=== PATIENT | male | born 1945 | race Caucasian/White ===

== ENCOUNTER 2016-09-27 07:25 | Day surgery (SDC) | payer MEDICARE, BC ==
[2016-09-27] MEDS ORDERED: Sodium Chloride 0.9% 1,000 ML IV SCH (08:00)
[2016-09-27] MEDS ORDERED: fentaNYL 100 MCG/2 ML SDV ONE (08:15)
[2016-09-27] MEDS ORDERED: Propofol 200 MG/20 ML SDV ONE (08:15)
[2016-09-27 09:36] VITALS: BP 113/67
--- NOTE | 2016-09-28 12:39 | PROC ---
DATE OF PROCEDURE: 09/27/2016 INDICATION: Luis is a 71-year-old male who has had increasing abdominal pain to the point that he is concerned as it was not getting better with relief using medication. This procedure was done as an outpatient. The risks and benefits were explained to him. ANESTHESIA: Anesthesia was given by nurse [employer]. During the procedure, we used cc of fentanyl and 200 mg of propofol. PROCEDURE IN DETAIL: The Olympus 180 scope was used. The tube was placed into the pharynx and into the esophagus without difficulty and advanced into the stomach then into the first and second part of the duodenum. Upon retraction of the tube, there were no duodenal erythema. In the stomach and antrum area noticed significant mucosal erythema and pictures were taken. A biopsy was done for Helicobacter pylori. The greater and lesser curvature showed erythema. Further evaluation of the fundus revealed no abnormality with retroflexion of the tube. Air was withdrawn from the stomach. The GE junction was identified, and there was no significant hiatal hernia. The remainder of the esophagus was unremarkable, and the vocal cords were unremarkable. The tube was removed. The patient tolerated the procedure well. PREOPERATIVE DIAGNOSIS: Abdominal pain. POSTOPERATIVE DIAGNOSIS: Gastric mucosa erythema, biopsies pending for Helicobacter pylori, CLOtest. James Branham MD /[id number] MTDD
== END 2016-09-27 09:44 | disposition home or self-care (01) ==
LOC: JP.SDS 07:25
PROVIDERS: ATTEND Internal Medicine
DX: K31.89 Other diseases of stomach and duodenum (principal); K21.9 Gastro-esophageal reflux disease without esophagitis; F32.9 Major depressive disorder, single episode, unspecified; Z88.8 Allergy status to other drugs, medicaments and biological substances
CPT/HCPCS: 43239; 87081; J2704; J3010; J7040

== ENCOUNTER 2016-12-20 17:43 | Inpatient (IN) | payer OTHER, MEDICARE, BC ==
[2016-12-20] MEDS ORDERED: HYDROmorphone 0.5 MG/0.5 ML Syringe IVPUSH ONE (18:16)
[2016-12-20] MEDS ORDERED: Ondansetron 4 MG/2 ML SDV IVPUSH ONE (18:17)
--- NOTE | 2016-12-20 18:26 | EDM.PDOC ---
ED HPI GENERAL MEDICAL PROBLEM - General Chief Complaint: Lower Extremity Injury/Pain Stated Complaint: FELL VIA AMBULANCE Time Seen by Provider: 12/20/16 18:25 Source of Information: Reports: Patient, Family History Limitations: Reports: No Limitations - History of Present Illness INITIAL COMMENTS - FREE TEXT/NARRATIVE: pt went out on the ice and with the snow cover he slipped and hit his rt hip. Onset: Today, Sudden, Other (pt slipped on the ice. ) Duration: Hour(s): Location: Reports: Lower Extremity, Right Right Hip Pain Score (Numeric/FACES): 7 - Related Data Allergies Allergy/AdvReac Type Severity Reaction Status Date / Time niacin Allergy Liver Verified 09/27/16 07:45 Problems Home Meds: Home Meds Levothyroxine Sodium [Synthroid] 0.125 mcg PO DAILY 10/18/12 [History] Lovastatin [Mevacor] 40 mg PO BEDTIME 10/18/12 [History] Mirtazapine [Remeron] 22.5 mg PO BEDTIME 10/18/12 [History] Terazosin HCl [Terazosin] 10 mg PO BEDTIME 10/18/12 [History] buPROPion HCl [Wellbutrin Xl] 150 mg PO DAILY 10/18/12 [History] Clopidogrel [Plavix] 1 tab PO DAILY 01/05/15 [History] [place] Carbonate 1 cap PO DAILY 01/05/15 [History] Metoprolol Succinate 1 tab PO DAILY 01/05/15 [History] Ranitidine [Zantac] 1 tab PO BID 01/05/15 [History] Brimonidine [Alphagan P 0.15% Ophth Soln] 1 drop EYERT BID 09/27/16 [History] Calcium Carbonate [Calcium] 500 mg PO DAILY 09/27/16 [History] Calcium Polycarbophil [Fibercon] 625 mg PO DAILY 09/27/16 [History] Cranberry 400 mg PO TID 09/27/16 [History] Latanoprost [Xalatan 0.005% Ophth Soln] 2.5 ml EYEBOTH BEDTIME 09/27/16 [History ] Melatonin 3 mg PO BEDTIME 09/27/16 [History] Multivitamin [Multi-Vitamin Daily] 1 each PO DAILY 09/27/16 [History] Aejbi-R-Sehgnhmbzbkde [Beano] 1 each PO DAILY 12/20/16 [History] Past Medical History HEENT History: Reports: Hard of Hearing Cardiovascular History: Reports: CAD, High Cholesterol, Hypertension, [place] Gastrointestinal History: Reports: GERD Genitourinary History: Reports: BPH Psychiatric History: Reports: Depression Endocrine/Metabolic History: Reports: Hypothyroidism Oncologic (Cancer) History: Reports: Prostate - Past Surgical History HEENT Surgical History: Reports: None Cardiovascular Surgical History: Reports: Coronary Artery Stent GI Surgical History: Reports: Appendectomy, Colonoscopy, EGD, Hernia, Inguinal Male Surgical History: Reports: Prostate Biopsy Oncologic Surgical History: Reports: None Social & Family History - Family History Family Medical History: Noncontributory - Tobacco Use Smoking Status *Q: Former Smoker Used Tobacco, but Quit: Yes Month Tobacco Last Used: 30 years Second Hand Smoke Exposure: Yes - Caffeine Use Caffeine Use: Reports: None Caffeine Use Comment: very rarely - Alcohol Use Days Per Week of Alcohol Use: 2 Number of Drinks Per Day: 1 Total Drinks Per Week: 2 - Recreational Drug Use Recreational Drug Use: No Review of Systems - Review of Systems Review Of Systems: See Below Constitutional: Reports: No Symptoms Eyes: Reports: No Symptoms Ears: Reports: No Symptoms Nose: Reports: No Symptoms Mouth/Throat: Reports: No Symptoms Respiratory: Reports: No Symptoms Cardiovascular: Reports: No Symptoms GI/Abdominal: Reports: No Symptoms Musculoskeletal: Reports: Other (pain in the rt hip) Skin: Reports: No Symptoms ED EXAM, GENERAL - Physical Exam Exam: See Below Free Text/Narrative:: pt arrived after slipping on the ice at [employer]. He landed on his rt hip and now has severe pain in the hip. He did not hit the back of his head. Exam Limited By: No Limitations General Appearance: Alert, Anxious, Severe Distress Ears: Normal TMs Nose: Normal Inspection Throat/Mouth: Normal Inspection Head: Atraumatic Neck: Normal Inspection Respiratory/Chest: No Respiratory Distress Cardiovascular: Regular Rate, Rhythm GI/Abdominal: Soft, Non-Tender (Male) Exam: Deferred Rectal (Males) Exam: Deferred Back Exam: Normal Inspection Extremities: Normal Inspection Neurological: Alert, Oriented, Normal Cognition Course - Vital Signs Last Recorded V/S: Last Vital Signs Temp 36.4 C 12/20/16 18:14 Pulse 72 12/20/16 19:39 Resp 18 12/20/16 19:39 BP 138/85 12/20/16 19:39 Pulse Ox 97 12/20/16 19:39 - Orders/Labs/Meds Orders: Active Orders 24 hr Category Date Time Status EKG Documentation Completion [RC] ASDIRECTED Care 12/20/16 20:05 Active More Catheter Insertion [Insert Urinary Catheter] [OM. Care 12/20/16 20:15 Ordered PC] Q24H Urinary Catheter Assessment [RC] ASDIRECTED Care 12/20/16 20:06 Active Chest 1V Frontal [CR] Stat Exams 12/20/16 20:05 Ordered Hip Min 2V or 3V w Pelvis Rt [CR] Stat Exams 12/20/16 18:20 Taken CBC WITH AUTO DIFF [HEME] Urgent Lab 12/20/16 20:25 Received COMPREHENSIVE METABOLIC PN,CMP [CHEM] Urgent Lab 12/20/16 20:25 Received UA W/MICROSCOPIC [URIN] Urgent Lab 12/20/16 20:25 Ordered EKG 12 Lead [EK] Routine Ther 12/20/16 20:05 Ordered Meds: Medications Discontinued Medications Generic Name Dose Route Start Last Admin Trade Name Freq PRN Reason Stop Dose Admin Hydromorphone HCl 0.5 mg 12/20/16 18:16 12/20/16 18:29 Dilaudid IVPUSH 12/20/16 18:17 0.5 mg ONETIME ONE Administration Hydromorphone HCl 1 mg 12/20/16 19:30 12/20/16 19:33 Dilaudid IVPUSH 12/20/16 19:31 1 mg ONETIME ONE Administration Ondansetron HCl 4 mg 12/20/16 18:17 12/20/16 18:47 Zofran IVPUSH 12/20/16 18:18 Not Given ONETIME ONE - Re-Assessments/Exams Free Text/Narrative Re-Assessment/Exam: 12/20/16 19:46 xrays of the pelvis reveal no fractures. He has a fracture in the neck of the rt hip with some impaction. 12/20/16 20:29 The films were reviewed by Dr Marshall Montesinos and felt that the pt should have a total hip. He will be admitted and be prepped for surgery probaly Sunday because he is on plavix. Departure - Departure Time of Disposition: 20:31 Disposition: Admitted As Inpatient 66 Condition: Fair Clinical Impression: Fracture of right hip, Arthritis of right hip - Discharge Information Referrals: James Branham Sr, MD [Primary Care Provider] - Forms: ED Department Discharge Care Plan Goals: admit to Dr James Branham - My Orders Last 24 Hours: My Active Orders 12/20/16 18:20 Hip Min 2V or 3V w Pelvis Rt [CR] Stat 12/20/16 20:05 EKG Documentation Completion [RC] ASDIRECTED Chest 1V Frontal [CR] Stat EKG 12 Lead [EK] Routine 12/20/16 20:06 Urinary Catheter Assessment [RC] ASDIRECTED 12/20/16 20:15 More Catheter Insertion [Insert Urinary Catheter] [OM.PC] Q24H 12/20/16 20:25 CBC WITH AUTO DIFF [HEME] Urgent COMPREHENSIVE METABOLIC PN,CMP [CHEM] Urgent UA W/MICROSCOPIC [URIN] Urgent - Assessment/Plan Last 24 Hours: My Active Orders 12/20/16 18:20 Hip Min 2V or 3V w Pelvis Rt [CR] Stat 12/20/16 20:05 EKG Documentation Completion [RC] ASDIRECTED Chest 1V Frontal [CR] Stat EKG 12 Lead [EK] Routine 12/20/16 20:06 Urinary Catheter Assessment [RC] ASDIRECTED 12/20/16 20:15 More Catheter Insertion [Insert Urinary Catheter] [OM.PC] Q24H 12/20/16 20:25 CBC WITH AUTO DIFF [HEME] Urgent COMPREHENSIVE METABOLIC PN,CMP [CHEM] Urgent UA W/MICROSCOPIC [URIN] Urgent
[2016-12-20] MEDS ORDERED: HYDROmorphone 1 MG/ML Syringe IVPUSH ONE (19:30)
--- NOTE | 2016-12-20 21:13 | PCM.HP ---
H&P History of Present Illness - General Date of Service: 12/20/16 Admit Problem/Dx: Admission Diagnosis/Problem Admission Diagnosis/Problem Hip fracture requiring operative repair Source of Information: Patient, EMS, Family History Limitations: Reports: No Limitations - History of Present Illness Initial Comments - Free Text/Narative: Fell at work on the ice having pain in the right hip and brought in by EMS. X- ray shows fracture of the right hip. Duration of Symptoms: Reports: Hour(s): Location: Reports: Lower Extremity, Right Severity: Moderate Right Hip Pain Score (Numeric/FACES): 7 - Related Data Allergies/Adverse Reactions: Allergies Allergy/AdvReac Type Severity Reaction Status Date / Time niacin Allergy Liver Verified 09/27/16 07:45 Problems Home Medications: Home Meds Levothyroxine Sodium [Synthroid] 0.125 mcg PO DAILY 10/18/12 [History] Lovastatin [Mevacor] 40 mg PO BEDTIME 10/18/12 [History] Mirtazapine [Remeron] 22.5 mg PO BEDTIME 10/18/12 [History] Terazosin HCl [Terazosin] 10 mg PO BEDTIME 10/18/12 [History] buPROPion HCl [Wellbutrin Xl] 150 mg PO DAILY 10/18/12 [History] Clopidogrel [Plavix] 1 tab PO DAILY 01/05/15 [History] [place] Carbonate 1 cap PO DAILY 01/05/15 [History] Metoprolol Succinate 1 tab PO DAILY 01/05/15 [History] Ranitidine [Zantac] 1 tab PO BID 01/05/15 [History] Brimonidine [Alphagan P 0.15% Ophth Soln] 1 drop EYERT BID 09/27/16 [History] Calcium Carbonate [Calcium] 500 mg PO DAILY 09/27/16 [History] Calcium Polycarbophil [Fibercon] 625 mg PO DAILY 09/27/16 [History] Cranberry 400 mg PO TID 09/27/16 [History] Latanoprost [Xalatan 0.005% Ophth Soln] 2.5 ml EYEBOTH BEDTIME 09/27/16 [History ] Melatonin 3 mg PO BEDTIME 09/27/16 [History] Multivitamin [Multi-Vitamin Daily] 1 each PO DAILY 09/27/16 [History] Dgprq-A-Dfjbvsfxcxabm [Beano] 1 each PO DAILY 12/20/16 [History] Past Medical History HEENT History: Reports: Hard of Hearing Cardiovascular History: Reports: CAD, High Cholesterol, Hypertension, [place] Gastrointestinal History: Reports: GERD Genitourinary History: Reports: BPH Psychiatric History: Reports: Depression Endocrine/Metabolic History: Reports: Hypothyroidism Oncologic (Cancer) History: Reports: Prostate - Past Surgical History HEENT Surgical History: Reports: None Cardiovascular Surgical History: Reports: Coronary Artery Stent GI Surgical History: Reports: Appendectomy, Colonoscopy, EGD, Hernia, Inguinal Male Surgical History: Reports: Prostate Biopsy Oncologic Surgical History: Reports: None Social & Family History - Family History Family Medical History: Noncontributory - Tobacco Use Smoking Status *Q: Former Smoker Used Tobacco, but Quit: Yes Month Tobacco Last Used: 30 years Second Hand Smoke Exposure: Yes - Caffeine Use Caffeine Use: Reports: None Caffeine Use Comment: very rarely - Alcohol Use Days Per Week of Alcohol Use: 2 Number of Drinks Per Day: 1 Total Drinks Per Week: 2 - Recreational Drug Use Recreational Drug Use: No H&P Review of Systems - Review of Systems: Review Of Systems: See Below HEENT: Reports: No Symptoms Pulmonary: Reports: No Symptoms Cardiovascular: Reports: No Symptoms Gastrointestinal: Reports: No Symptoms Genitourinary: Reports: No Symptoms Musculoskeletal: Reports: Joint Pain Skin: Reports: No Symptoms Psychiatric: Reports: No Symptoms Neurological: Reports: No Symptoms Hematologic/Lymphatic: Reports: No Symptoms, Other (On plavix) Exam - Exam Exam: See Below - Vital Signs Vital Signs: Last Vital Signs Temp 97.5 F 12/20/16 18:14 Pulse 72 12/20/16 19:39 Resp 18 12/20/16 19:39 BP 138/85 12/20/16 19:39 Pulse Ox 97 12/20/16 19:39 Weight: 195 lb - Exam General: Alert, Oriented, 4 HEENT: PERRLA, Hearing Intact, Mucosa Moist & [place], Nares Patent, Normal Nasal Septum, Posterior Pharynx Clear, Conjunctiva Clear, EOMI, EACs Clear, TMs Clear Neck: Supple, Trachea Midline, 2 Lungs: Clear to Auscultation, Normal Respiratory Effort Cardiovascular: Regular Rate, Regular Rhythm GI/Abdominal Exam: Normal Bowel Sounds, Soft, Non-Tender, No Organomegaly, No Distention, No Abnormal Bruit, No Mass, Pelvis Stable Back Exam: Normal Inspection, Full Range of Motion, NT Extremities: Other (pain to movement right hip with evident fx.) Peripheral Pulses: 1+: Radial (L), Radial (R) Neuro Extensive - Mental Status: Alert, Oriented x3, Normal Mood/Affect, Normal Cognition Psychiatric: Alert, Normal Affect, Normal Mood - Patient Data Lab Results Last 24 hrs: Laboratory Results - last 24 hr 12/20/16 12/20/16 12/20/16 Range/Units 20:25 20:25 20:33 WBC 11.0 (4.5-11.0) K/uL RBC 4.58 (4.30-5.90) M/uL Hgb 14.6 (12.0-15.0) g/dL Hct 43.0 (40.0-54.0) % MCV 94 (80-98) fL MCH 32 H (27-31) pg MCHC 34 (32-36) % Plt Count 170 (150-400) K/uL Neut % (Auto) 80 H (36-66) % Lymph % (Auto) 14 L (24-44) % [place] % (Auto) 5 (2-6) % Eos % (Auto) 0 L (2-4) % Baso % (Auto) 0 (0-1) % Sodium 140 (140-148) mmol/L Potassium 3.8 (3.6-5.2) mmol/L Chloride 105 (100-108) mmol/L Carbon Dioxide 24 (21-32) mmol/L Anion Gap 10.6 (5.0-14.0) mmol/L BUN 18 (7-18) mg/dL Creatinine 0.9 (0.8-1.3) mg/dL Est Cr Clr Drug Dosing 77.73 mL/min Estimated GFR (MDRD) > 60 (>60) Glucose 120 H (74-106) mg/dL Calcium 9.0 (8.5-10.1) mg/dL Total Bilirubin 0.4 (0.2-1.0) mg/dL AST 14 L (15-37) U/L ALT 22 (12-78) U/L Alkaline Phosphatase 70 (46-116) U/L Total Protein 6.9 (6.4-8.2) g/dL Albumin 3.9 (3.4-5.0) g/dL Globulin 3.0 (2.3-3.5) g/dL Albumin/Globulin Ratio 1.3 (1.2-2.2) TSH, Ultra Sensitive (0.358-3.740) uIU/mL Urine Color Yellow Urine Appearance Clear Urine pH 5.0 (4.5-8.0) Ur Specific Boss 1.020 (1.008-1.030) Urine Protein Negative (NEGATIVE) mg/dL Urine Glucose (UA) Normal (NEGATIVE) mg/dL Urine Ketones Negative (NEGATIVE) mg/dL Urine Occult Blood Trace (NEGATIVE) Urine Nitrite Negative (NEGAITVE) Urine Bilirubin Negative (NEGATIVE) Urine Urobilinogen Normal (NORMAL) mg/dL Ur Leukocyte Esterase Negative (NEGATIVE) Urine RBC 0-5 (0-5) Urine WBC Not seen (0-5) Ur Epithelial Cells Rare Amorphous Sediment Not seen Urine Bacteria Few Urine Mucus Moderate 12/20/16 Range/Units 20:33 WBC (4.5-11.0) K/uL RBC (4.30-5.90) M/uL Hgb (12.0-15.0) g/dL Hct (40.0-54.0) % MCV (80-98) fL MCH (27-31) pg MCHC (32-36) % Plt Count (150-400) K/uL Neut % (Auto) (36-66) % Lymph % (Auto) (24-44) % [place] % (Auto) (2-6) % Eos % (Auto) (2-4) % Baso % (Auto) (0-1) % Sodium (140-148) mmol/L Potassium (3.6-5.2) mmol/L Chloride (100-108) mmol/L Carbon Dioxide (21-32) mmol/L Anion Gap (5.0-14.0) mmol/L BUN (7-18) mg/dL Creatinine (0.8-1.3) mg/dL Est Cr Clr Drug Dosing mL/min Estimated GFR (MDRD) (>60) Glucose (74-106) mg/dL Calcium (8.5-10.1) mg/dL Total Bilirubin (0.2-1.0) mg/dL AST (15-37) U/L ALT (12-78) U/L Alkaline Phosphatase (46-116) U/L Total Protein (6.4-8.2) g/dL Albumin (3.4-5.0) g/dL Globulin (2.3-3.5) g/dL Albumin/Globulin Ratio (1.2-2.2) TSH, Ultra Sensitive 5.261 H (0.358-3.740) uIU/mL Urine Color Urine Appearance Urine pH (4.5-8.0) Ur Specific Boss (1.008-1.030) Urine Protein (NEGATIVE) mg/dL Urine Glucose (UA) (NEGATIVE) mg/dL Urine Ketones (NEGATIVE) mg/dL Urine Occult Blood (NEGATIVE) Urine Nitrite (NEGAITVE) Urine Bilirubin (NEGATIVE) Urine Urobilinogen (NORMAL) mg/dL Ur Leukocyte Esterase (NEGATIVE) Urine RBC (0-5) Urine WBC (0-5) Ur Epithelial Cells Amorphous Sediment Urine Bacteria Urine Mucus Result Diagrams: 12/20/16 20:25 12/20/16 20:25 *Q Meaningful Use (ADM) - VTE *Q VTE Criteria *Q: - Stroke *Q Stroke Criteria *Q: - AMI *Q AMI Criteria *Q: Problem List Initiated/Reviewed/Updated: Yes Orders Last 24hrs: Active Orders 24 hr Category Date Time Status Patient Status [ADT] Routine ADT 12/20/16 20:49 Ordered EKG Documentation Completion [RC] ASDIRECTED Care 12/20/16 20:05 Active More Catheter Insertion [Insert Urinary Catheter] [OM. Care 12/20/16 20:15 Ordered PC] Q24H Height and Weight [RC] UPON Care 12/20/16 20:49 Ordered Intake and Output [RC] QSHIFT Care 12/20/16 20:54 Ordered Oxygen Therapy [RC] PRN Care 12/20/16 20:49 Ordered Urinary Catheter Assessment [RC] ASDIRECTED Care 12/20/16 20:06 Active VTE/DVT Education [RC] Per Unit Routine Care 12/20/16 20:49 Ordered Vital Signs [RC] Q4H Care 12/20/16 20:49 Ordered Regular Diet [DIET] Diet 12/21/16 Breakfast Ordered Chest 1V Frontal [CR] Stat Exams 12/20/16 20:05 Ordered Hip Min 2V or 3V w Pelvis Rt [CR] Stat Exams 12/20/16 18:20 Taken Brimonidine [Alphagan P 0.15% Ophth Soln] Med 12/21/16 09:00 Ordered 1 drop EYERT BID Calcium Carbonate [Calcium] Med 12/21/16 09:00 Ordered 500 mg PO DAILY Calcium Polycarbophil [Fibercon] Med 12/21/16 09:00 Ordered 625 mg PO DAILY Latanoprost [Xalatan 0.005% Ophth Soln] Med 12/21/16 21:00 Ordered 2.5 ml EYEBOTH BEDTIME Levothyroxine Sodium [Synthroid] Med 12/21/16 09:00 Ordered 0.125 mcg PO DAILY [place] Carbonate Med 12/21/16 09:00 Ordered 1 cap PO DAILY Melatonin Med 12/21/16 21:00 Ordered 3 mg PO BEDTIME Metoprolol Succinate [Toprol XL] Med 12/21/16 09:00 Ordered 1 tab PO DAILY Mirtazapine [Remeron] Med 12/21/16 21:00 Ordered 22.5 mg PO BEDTIME Ranitidine [Zantac] Med 12/21/16 09:00 Ordered 1 tab PO BID Terazosin HCl [Terazosin] Med 12/21/16 21:00 Ordered 10 mg PO BEDTIME buPROPion [Wellbutrin XL] Med 12/21/16 09:00 Ordered 150 mg PO DAILY Antiembolic Hose [OM.PC] Per Unit Routine Oth 12/20/16 20:56 Ordered Sequential Compression Device [OM.PC] Per Unit Routine Oth 12/20/16 20:56 Ordered Resuscitation Status Routine Resus Stat 12/20/16 20:49 Ordered EKG 12 Lead [EK] Routine Ther 12/20/16 20:05 Ordered Medication Orders Brimonidine Tartrate (Alphagan P 0.15% Ophth Soln) ml EYERT BID LOIDA Bupropion HCl (Wellbutrin Xl) 150 mg PO DAILY LOIDA Calcium Polycarbophil (Fibercon) 625 mg PO DAILY LOIDA Latanoprost (Xalatan 0.005% Ophth Soln) 2.5 ml EYEBOTH BEDTIME LO[place] Carbonate ([place] Carbonate) mg PO DAILY LOIDA Melatonin (Melatonin) 3 mg PO BEDTIME LOIDA Metoprolol Succinate (Toprol Xl) mg PO DAILY LO[place] Non-Formulary Medication (Calcium Carbonate [Calcium]) 500 mg PO DAILY LO[place] Non-Formulary Medication (Levothyroxine Sodium [Synthroid]) 0.125 mcg PO DAILY LOIDA Non-Formulary Medication (Mirtazapine [Remeron]) 22.5 mg PO BEDTIME LOIDA Ranitidine HCl (Zantac) mg PO BID LOIDA Assessment/Plan Comment:: Assessment/Plan: #1. Right hip fx. Dr. Bonilla Montesinos has seen the patient and will do surgery Sunday morning. Will clear for surgery tomorrow. Will give pain meds PATIENT SUPPORT SPECIALIST. #2. History of HTN: On meds. #3. Hx of depression: Will continue with meds as before. #4. Hypothy. Contl. with meds. #5. GERD: Continue with Meds.
[2016-12-20] MEDS ORDERED: Naloxone 0.4 MG/ML SDV IV PRN (22:28)
[2016-12-20] MEDS ORDERED: HYDROmorphone/Normal Saline 15 MG/30 ML PCA IV PRN (22:28)
[2016-12-20] MEDS ORDERED: Latanoprost 0.005% Ophth Soln 2.5 ML Bottle EYEBOTH SCH (23:00)
[2016-12-20] MEDS: Terazosin 5 MG Cap PO SCH (23:26)
[2016-12-20] MEDS: Melatonin 3 MG Tab PO SCH (23:26)
[2016-12-20] MEDS: Mirtazapine 15 MG Tab PO SCH (23:26)
--- NOTE | 2016-12-21 08:47 | PCM.PN ---
- General Info Date of Service: 12/21/16 - Review of Systems HEENT: Reports: No Symptoms Pulmonary: Reports: No Symptoms Cardiovascular: Reports: No Symptoms Musculoskeletal: Reports: Joint Pain - Patient Data Vitals - Most Recent: Last Vital Signs Temp 96.8 F 12/21/16 07:18 Pulse 75 12/21/16 07:18 Resp 16 12/21/16 07:18 BP 97/59 L 12/21/16 07:18 Pulse Ox 96 12/21/16 07:18 Weight - Most Recent: 193 lb 5 oz I&O - Last 24 Hours: Intake & Output 12/20/16 12/21/16 12/21/16 22:59 06:59 14:59 Intake Total 360 360 Output Total 550 Balance -190 360 Med Orders - Current: Current Medications Brimonidine Tartrate (Alphagan P 0.15% Ophth Soln) 0 ml EYERT BID LO[place] Bupropion HCl (Wellbutrin Xl) 150 mg PO DAILY [facility] Calcium Carbonate/Glycine (Tums) 500 mg PO DAILY LO[place] Calcium Polycarbophil (Fibercon) 625 mg PO DAILY LO[place] Hydromorphone HCl (Dilaudid Clay Thrower 15 Mg In Ns 30 Ml) 0 mg IV ASDIRECTED PRN; Protocol PRN Reason: [employer] PROGRAM SPECIALIST PAIN CONTROL Last Admin: 12/20/16 22:53 Dose: 15 mg Sodium Chloride (Normal Saline) 1,000 mls @ 0 mls/hr IV ASDIRECTED LOIDA PRN Reason: KVO Latanoprost (Xalatan 0.005% Ophth Soln) 0 ml EYEBOTH BEDTIME LOIDA Levothyroxine Sodium (Synthroid) 100 mcg PO ACBREAKFAST [facility] Levothyroxine Sodium (Levothyroxine) 25 mcg PO ACBREAKFAST [facility] [place] Carbonate ([place] Carbonate) 150 mg PO DAILY [facility] Melatonin (Melatonin) 3 mg PO BEDTIME [facility] Last Admin: 12/20/16 23:26 Dose: 3 mg Metoprolol Succinate (Toprol Xl) 50 mg PO DAILY [facility] Mirtazapine (Remeron) 22.5 mg PO BEDTIME [facility] Last Admin: 12/20/16 23:26 Dose: 22.5 mg Naloxone HCl (Narcan) 0.1 mg IV ASDIRECTED PRN PRN Reason: decreased respiratory rate Ranitidine HCl (Zantac) 150 mg PO BID [facility] Last Admin: 12/20/16 23:26 Dose: 150 mg Terazosin HCl (Hytrin) 10 mg PO BEDTIME [place] Last Admin: 12/20/16 23:26 Dose: 10 mg Discontinued Medications Hydromorphone HCl (Dilaudid) 0.5 mg IVPUSH ONETIME ONE Stop: 12/20/16 18:17 Last Admin: 12/20/16 18:29 Dose: 0.5 mg Hydromorphone HCl (Dilaudid) 1 mg IVPUSH ONETIME ONE Stop: 12/20/16 19:31 Last Admin: 12/20/16 19:33 Dose: 1 mg Latanoprost (Xalatan 0.005% Ophth Soln) 2.5 ml EYEBOTH BEDTIME LOIDA Last Admin: 12/20/16 23:26 Dose: 1 drop Ondansetron HCl (Zofran) 4 mg IVPUSH ONETIME ONE Stop: 12/20/16 18:18 Last Admin: 12/20/16 18:47 Dose: Not Given - Exam General: Alert, Oriented HEENT: Pupils Equal, Pupils Reactive, EOMI, Mucous Membr. Moist/[place] Neck: Supple Lungs: Clear to Auscultation, Normal Respiratory Effort Cardiovascular: Regular Rate (fracture left hip), Regular Rhythm Skin: Warm, Dry, Intact Neurological: No New Focal Deficit Psy/Mental Status: Alert, Normal Affect, Normal Mood - Problem List Review Problem List Initiated/Reviewed/Updated: Yes - My Orders Last 24 Hours: My Active Orders 12/20/16 21:29 Notify Provider Consults [RC] ASDIRECTED 12/20/16 22:28 HYDROmorphone/Normal Saline [Dilaudid [employer] SPECIALIST 15 MG in NS 30 ML] 0 mg IV ASDIRECTED PRN Naloxone [Narcan] 0.1 mg IV ASDIRECTED PRN 12/20/16 22:59 Air Overlay [Pressure Reduction Mattress] [OM.PC] Routine 12/20/16 23:00 Melatonin 3 mg PO BEDTIME Mirtazapine [Remeron] 22.5 mg PO BEDTIME Ranitidine [Zantac] 150 mg PO BID Terazosin [Hytrin] 10 mg PO BEDTIME 12/21/16 06:15 Sodium Chloride 0.9% [Normal Saline] 1,000 ml IV ASDIRECTED 12/21/16 07:30 Levothyroxine 25 mcg PO ACBREAKFAST Levothyroxine [Synthroid] 100 mcg PO ACBREAKFAST 12/21/16 08:26 Consult to Physician [CONS] Routine 12/21/16 09:00 Brimonidine [Alphagan P 0.15% Ophth Soln] 0 ml EYERT BID Calcium Carbonate [Tums] 500 mg PO DAILY Calcium Polycarbophil [Fibercon] 625 mg PO DAILY [place] Carbonate 150 mg PO DAILY Metoprolol Succinate [Toprol XL] 50 mg PO DAILY buPROPion [Wellbutrin XL] 150 mg PO DAILY 12/21/16 21:00 Latanoprost [Xalatan 0.005% Ophth Soln] 0 ml EYEBOTH BEDTIME - Plan Plan:: Assessment/Plan: #1. Right hip fx. Dr. Bonilla Montesinos has seen the patient and will do surgery Sunday morning. . Will increase dilaudid [employer] PROGRAM SPECIALIST for improved pain control. #2. History of HTN: good control. #3. Hx of depression: Will continue with meds as before. #4. Hypothy. Cont. with meds. #5. GERD: Continue with Meds. I feel he is medically stable for the surgery tomorrow (8:13 P.M.) I would expect no intra-operative or post- operative complications
[2016-12-21] MEDS: Levothyroxine 100 MCG Tab PO SCH (09:11)
[2016-12-21] MEDS: Brimonidine 0.15% Ophth Soln 5 ML Bottle EYERT SCH ×2 (09:12→20:54)
[2016-12-21] MEDS: Levothyroxine 25 MCG Tab PO SCH (09:12)
[2016-12-21] MEDS: Calcium Carbonate 500 MG Tab.Chew PO SCH (09:13)
[2016-12-21] MEDS: Calcium Polycarbophil 625 MG Tab PO SCH (09:13)
[2016-12-21] MEDS: buPROPion 150 MG Tab.ER PO SCH (09:13)
[2016-12-21] MEDS: Metoprolol Succinate 50 MG Tab.ER PO SCH (09:14)
--- NOTE | 2016-12-21 09:18 | CR ---
Chest 1V Frontal INDICATION: hip fracture FINDINGS: Comparison 04/24/2006. Negative AP portable chest x-ray.
--- NOTE | 2016-12-21 09:19 | CR ---
Hip Min 2V or 3V w Pelvis Rt INDICATION: pain in the rt hip FINDINGS: Acute, mildly displaced right femoral neck fracture. Radiation prostate seeds in place. Deg enerative changes left hip.
[2016-12-21] MEDS ORDERED: HYDROmorphone/Normal Saline 15 MG/30 ML PCA IV PRN (09:45)
--- NOTE | 2016-12-21 09:48 | PCM.CONS ---
H&P History of Present Illness - General Admit Problem/Dx: Admission Diagnosis/Problem Admission Diagnosis/Problem Hip fracture requiring operative repair Source of Information: Patient History Limitations: Reports: No Limitations - History of Present Illness Onset of Symptoms: Reports: Sudden Duration of Symptoms: Reports: Day(s): Location: Reports: Lower Extremity, Right Quality: Reports: Burning, Dull, Pressure Severity: Moderate Improves with: Reports: Immobilization Worsens with: Reports: Movement Associated Symptoms: Reports: No Other Symptoms Right Hip Pain Score (Numeric/FACES): 4 - Related Data Allergies/Adverse Reactions: Allergies Allergy/AdvReac Type Severity Reaction Status Date / Time niacin Allergy Liver Verified 09/27/16 07:45 Problems Home Medications: Home Meds Levothyroxine Sodium [Synthroid] 0.125 mcg PO DAILY 10/18/12 [History] Lovastatin [Mevacor] 40 mg PO BEDTIME 10/18/12 [History] Mirtazapine [Remeron] 22.5 mg PO BEDTIME 10/18/12 [History] Terazosin HCl [Terazosin] 10 mg PO BEDTIME 10/18/12 [History] buPROPion HCl [Wellbutrin Xl] 150 mg PO DAILY 10/18/12 [History] Clopidogrel [Plavix] 1 tab PO DAILY 01/05/15 [History] [place] Carbonate 1 cap PO DAILY 01/05/15 [History] Metoprolol Succinate 1 tab PO DAILY 01/05/15 [History] Ranitidine [Zantac] 1 tab PO BID 01/05/15 [History] Brimonidine [Alphagan P 0.15% Ophth Soln] 1 drop EYERT BID 09/27/16 [History] Calcium Carbonate [Calcium] 500 mg PO DAILY 09/27/16 [History] Calcium Polycarbophil [Fibercon] 625 mg PO DAILY 09/27/16 [History] Cranberry 400 mg PO TID 09/27/16 [History] Latanoprost [Xalatan 0.005% Ophth Soln] 2.5 ml EYEBOTH BEDTIME 09/27/16 [History ] Melatonin 3 mg PO BEDTIME 09/27/16 [History] Multivitamin [Multi-Vitamin Daily] 1 each PO DAILY 09/27/16 [History] Dajwn-Q-Plqgjttljekfa [Beano] 1 each PO DAILY 12/20/16 [History] Past Medical History HEENT History: Reports: Hard of Hearing Cardiovascular History: Reports: CAD, High Cholesterol, Hypertension, [place] Gastrointestinal History: Reports: GERD Genitourinary History: Reports: BPH Psychiatric History: Reports: Depression Endocrine/Metabolic History: Reports: Hypothyroidism Oncologic (Cancer) History: Reports: Prostate - Past Surgical History HEENT Surgical History: Reports: None Cardiovascular Surgical History: Reports: Coronary Artery Stent GI Surgical History: Reports: Appendectomy, Colonoscopy, EGD, Hernia, Inguinal Male Surgical History: Reports: Prostate Biopsy Oncologic Surgical History: Reports: None Social & Family History - Family History Family Medical History: Noncontributory - Tobacco Use Smoking Status *Q: Former Smoker Used Tobacco, but Quit: Yes Month Tobacco Last Used: 30 years Second Hand Smoke Exposure: Yes - Caffeine Use Caffeine Use: Reports: None Caffeine Use Comment: very rarely - Alcohol Use Days Per Week of Alcohol Use: 2 Number of Drinks Per Day: 1 Total Drinks Per Week: 2 - Recreational Drug Use Recreational Drug Use: No H&P Review of Systems - Review of Systems: Review Of Systems: See Below General: Reports: No Symptoms HEENT: Reports: No Symptoms Pulmonary: Reports: No Symptoms Cardiovascular: Reports: No Symptoms Gastrointestinal: Reports: No Symptoms Genitourinary: Reports: No Symptoms Musculoskeletal: Reports: Leg Pain, Joint Pain Skin: Reports: No Symptoms Psychiatric: Reports: No Symptoms Neurological: Reports: No Symptoms Hematologic/Lymphatic: Reports: No Symptoms Immunologic: Reports: No Symptoms Exam - Exam Exam: See Below - Vital Signs Vital Signs: Last Vital Signs Temp 96.8 F 12/21/16 07:18 Pulse 73 12/21/16 09:14 Resp 16 12/21/16 07:18 BP 111/66 12/21/16 09:14 Pulse Ox 96 12/21/16 07:18 Weight: 193 lb 5 oz - Exam General: Alert, Oriented, 4 HEENT: PERRLA, Conjunctiva Clear, Hearing Intact, Mucosa Moist & [place] Neck: Supple Lungs: Normal Respiratory Effort Peripheral Pulses: 2+: Dorsalis Pedis (L) Skin: Warm, Dry, Intact Neurological: Hyporeflexia Neuro Extensive - Mental Status: Alert, Normal Mood/Affect, Normal Cognition, Memory Intact Psychiatric: Alert, Normal Affect, Normal Mood - Patient Data Result Diagrams: 12/20/16 20:25 12/20/16 20:25 Consult PN Assessment/Plan POD#: 0 Procedures: Procedures CARDIOVASCULAR STRESS TEST (10/18/12) CULTURE SCREEN ONLY (09/27/16) EGD BIOPSY SINGLE/MULTIPLE (09/27/16) HT MUSCLE IMAGE SPECT MULT (01/11/15) (1) Fracture of femoral neck, right, closed SNOMED Code(s): 278249639 Code(s): S72.001A - FRACTURE OF UNSP PART OF NECK OF RIGHT FEMUR, INIT Current Visit: Yes Qualifiers: Encounter type: initial encounter Qualified Code(s): S72.001A - Fracture of unspecified part of neck of right femur, initial encounter for closed fracture Problem List Initiated/Reviewed/Updated: Yes My Orders Last 24 Hours: My Active Orders 12/21/16 08:08 Transfuse Fresh Frozen Plasma [COMM] Routine 12/21/16 08:31 FRESH FROZEN PLASMA [BBK] Routine Plan: I had the pleasure visiting with the patient and his hospital room this morning. He fell yesterday and was seen at the emergency department where he was found to have a right femoral neck fracture that was closed. I spoke with Nathanael Branham this morning. He is familiar with the patient. I've advised him that we will administer fresh frozen plasma today. The patient is on Plavix. I' ve explained to the patient as well that I would like to make sure his coagulation is little bit better prior to proceeding. Imaging: Multiple views of the right hip are reviewed incorporated into the decision-making process. This shows a basicervical right femoral neck fracture which is displaced and shortened. 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 Pincher impingement is present. Plan: We'll proceed with a right total hip arthroplasty tomorrow. I've advised the patient of the risks and benefits of the procedure. All questions were answered.
--- NOTE | 2016-12-21 10:33 | CR ---
Pelvis 1V or 2V INDICATION: right hip fracture FINDINGS: Comparison 12/20/2016. Again demonstrated is a mildly displaced right femoral neck fracture that is difficult to visualize on today's exam due to technique. Radiation prostate seeds in place. D egenerative changes left hip.
[2016-12-21] MEDS: Sodium Chloride 0.9% 1,000 ML IV SCH (15:07)
[2016-12-21] MEDS: Latanoprost 0.005% Ophth Soln 2.5 ML Bottle EYEBOTH SCH (20:54)
[2016-12-21] MEDS: Mirtazapine 15 MG Tab PO SCH (20:55)
[2016-12-21] MEDS: Terazosin 5 MG Cap PO SCH (20:55)
[2016-12-21] MEDS: Melatonin 3 MG Tab PO SCH (20:55)
[2016-12-22] MEDS ORDERED: Povidone-Iodine 10% Soln 118.25 ML Bottle ONE (07:23)
[2016-12-22] MEDS: Metoprolol Succinate 50 MG Tab.ER PO SCH (08:30)
--- NOTE | 2016-12-22 08:55 | PCM.PN ---
- General Info Date of Service: 12/22/16 Functional Status: Reports: Pain Controlled - Review of Systems General: Reports: No Symptoms HEENT: Reports: No Symptoms Pulmonary: Reports: No Symptoms Cardiovascular: Reports: No Symptoms Psychiatric: Reports: No Symptoms - Patient Data Vitals - Most Recent: Last Vital Signs Temp 101 F H 12/22/16 07:00 Pulse 82 12/22/16 08:30 Resp 18 12/22/16 07:00 BP 115/68 12/22/16 08:30 Pulse Ox 96 12/22/16 07:14 Weight - Most Recent: 193 lb 5 oz I&O - Last 24 Hours: Intake & Output 12/21/16 12/22/16 12/22/16 22:59 06:59 14:59 Intake Total 285 890 Output Total 405 850 525 Balance -120 40 -525 Lab Results Last 24 Hours: Laboratory Results - last 24 hr 12/21/16 Range/Units 16:39 Blood Type A POSITIVE Gel Antibody Screen Negative Med Orders - Current: Current Medications Brimonidine Tartrate (Alphagan P 0.15% [facility]) 0 ml EYERT BID [facility] Last Admin: 12/21/16 20:54 Dose: 1 drop Bupropion HCl (Wellbutrin Xl) 150 mg PO DAILY [facility] Last Admin: 12/21/16 09:13 Dose: 150 mg Calcium Carbonate/Glycine (Tums) 500 mg PO DAILY [facility] Last Admin: 12/21/16 09:13 Dose: 500 mg Calcium Polycarbophil (Fibercon) 625 mg PO DAILY [facility] Last Admin: 12/21/16 09:13 Dose: 625 mg Ropivacaine 49.25 ml/Ketorolac Tromethamine 30 mg/Epinephrine HCl 0.5 mg/ Clonidine HCl 80 mcg/ Sodium Chloride 48.45 ml 0 ml INJECT ONETIME ONE Stop: 12/22/16 12:46 Hydromorphone HCl (Dilaudid Button Puncher 15 Mg In Ns 30 Ml) 0 mg IV ASDIRECTED PRN; Protocol PRN Reason: PAIN Sodium Chloride (Normal Saline) 1,000 mls @ 0 mls/hr IV ASDIRECTED LOIDA PRN Reason: KVO Last Admin: 12/21/16 15:07 Dose: 25 mls/hr Tranexamic Acid 880 mg/ Sodium (Chloride) 58.8 mls @ 235.2 mls/hr IV Q2H [facility] Stop: 12/22/16 14:59 Ketamine HCl (Ketalar) 36 mg IV ONETIME ONE Stop: 12/22/16 12:46 Latanoprost (Xalatan 0.005% Ophth Soln) 0 ml EYEBOTH BEDTIME [facility] Last Admin: 12/21/16 20:54 Dose: 1 drop Levothyroxine Sodium (Synthroid) 100 mcg PO ACBREAKFAST [facility] Last Admin: 12/21/16 09:11 Dose: 100 mcg Levothyroxine Sodium (Levothyroxine) 25 mcg PO ACBREAKFAST [facility] Last Admin: 12/21/16 09:12 Dose: 25 mcg [place] Carbonate ([place] Carbonate) 150 mg PO DAILY [facility] Last Admin: 12/21/16 09:13 Dose: 150 mg Melatonin (Melatonin) 3 mg PO BEDTIME [facility] Last Admin: 12/21/16 20:55 Dose: 3 mg Metoprolol Succinate (Toprol Xl) 50 mg PO DAILY [facility] Last Admin: 12/22/16 08:30 Dose: 50 mg Mirtazapine (Remeron) 22.5 mg PO BEDTIME [facility] Last Admin: 12/21/16 20:55 Dose: 22.5 mg Naloxone HCl (Narcan) 0.1 mg IV ASDIRECTED PRN PRN Reason: decreased respiratory rate Ranitidine HCl (Zantac) 150 mg PO BID [facility] Last Admin: 12/21/16 20:56 Dose: 150 mg Terazosin HCl (Hytrin) 10 mg PO BEDTIME [facility] Last Admin: 12/21/16 20:55 Dose: 10 mg Discontinued Medications Gentamicin Sulfate (Gentamicin) Confirm Administered Dose 240 mg .ROUTE .STK- MED ONE Stop: 12/22/16 07:24 Hydromorphone HCl (Dilaudid) 0.5 mg IVPUSH ONETIME ONE Stop: 12/20/16 18:17 Last Admin: 12/20/16 18:29 Dose: 0.5 mg Hydromorphone HCl (Dilaudid) 1 mg IVPUSH ONETIME ONE Stop: 12/20/16 19:31 Last Admin: 12/20/16 19:33 Dose: 1 mg Hydromorphone HCl (Dilaudid Button Puncher 15 Mg In Ns 30 Ml) 0 mg IV ASDIRECTED PRN; Protocol PRN Reason: [employer] PAIN CONTROL Last Admin: 12/20/16 22:53 Dose: 15 mg Latanoprost (Xalatan 0.005% Ophth Soln) 2.5 ml EYEBOTH BEDTIME [facility] Last Admin: 12/20/16 23:26 Dose: 1 drop Ondansetron HCl (Zofran) 4 mg IVPUSH ONETIME ONE Stop: 12/20/16 18:18 Last Admin: 12/20/16 18:47 Dose: Not Given Povidone Iodine (Betadine 10% Soln) Confirm Administered Dose 1 ml .ROUTE .STK- MED ONE Stop: 12/22/16 07:24 - Exam General: Alert, Oriented Neck: Supple Lungs: Clear to Auscultation, Normal Respiratory Effort Cardiovascular: Regular Rate, Regular Rhythm Psy/Mental Status: Alert, Normal Affect, Normal Mood - Problem List Review Problem List Initiated/Reviewed/Updated: Yes - My Orders Last 24 Hours: My Active Orders 12/21/16 08:26 Consult to Physician [CONS] Routine 12/21/16 09:00 Brimonidine [Alphagan P 0.15% Ophth Soln] 0 ml EYERT BID Calcium Carbonate [Tums] 500 mg PO DAILY Calcium Polycarbophil [Fibercon] 625 mg PO DAILY [place] Carbonate 150 mg PO DAILY Metoprolol Succinate [Toprol XL] 50 mg PO DAILY buPROPion [Wellbutrin XL] 150 mg PO DAILY 12/21/16 09:45 HYDROmorphone/Normal Saline [Dilaudid [employer] 15 MG in NS 30 ML] 0 mg IV ASDIRECTED PRN 12/21/16 21:00 Latanoprost [Xalatan 0.005% Ophth Soln] 0 ml EYEBOTH BEDTIME 12/22/16 08:50 CBC WITH AUTO DIFF [HEME] Routine COMPREHENSIVE METABOLIC PN,CMP [CHEM] Routine - Plan Plan:: Assessment/Plan: #1. Right hip fx. Hip replacement today. Blood work pending. #2. History of HTN: good control. #3. Hx of depression: Will continue with meds as before. #4. Hypothy. Cont. with meds. #5. GERD: Continue with Meds. I feel he is medically stable for the surgery. I would expect no intra- operative or post- operative complications
[2016-12-22] MEDS: Gentamicin 40 MG/ML 2 ML Vial ONE ×2 (11:42→14:25)
[2016-12-22] MEDS ORDERED: Ropivacaine 49.25 ML, Ketorolac 30 MG, EPINEPHrine 0.5 MG, cloNIDine 80 MCG, Sodium Chl... INJECT ONE ×5 (12:45)
[2016-12-22] MEDS ORDERED: Ketamine 500 MG/5 ML MDV IV ONE (12:45)
[2016-12-22] MEDS ORDERED: fentaNYL 250 MCG/5 ML SDV ONE (13:41)
[2016-12-22] MEDS ORDERED: Glycopyrrolate 0.2 MG/ML 5 ML MDV ONE (13:42)
[2016-12-22] MEDS ORDERED: Rocuronium 50 MG/5 ML Vial ONE (13:42)
[2016-12-22] MEDS ORDERED: Dexamethasone 4 MG/ML SDV ONE (13:42)
[2016-12-22] MEDS ORDERED: Succinylcholine 200 MG/10 ML MDV ONE (13:42)
[2016-12-22] MEDS ORDERED: Ondansetron 4 MG/2 ML SDV ONE (13:42)
[2016-12-22] MEDS ORDERED: Neostigmine Methylsulfate 1 MG/ML 5 ML Syringe ONE (13:42)
[2016-12-22] MEDS ORDERED: Propofol 200 MG/20 ML SDV ONE (13:42)
[2016-12-22] MEDS: ceFAZolin 2 GM in Sodium Chloride 0.9% 50 ML IV ONE ×2 (14:00→15:40)
[2016-12-22] MEDS: Tranexamic Acid 880 MG in Sodium Chloride 0.9% 50 ML IV SCH ×2 (14:30→16:31)
[2016-12-22] MEDS ORDERED: Lactated Ringers 1,000 ML ONE (14:58)
[2016-12-22] MEDS ORDERED: Naloxone 0.4 MG/ML SDV ONE (16:11)
[2016-12-22] MEDS ORDERED: Ketorolac 30 MG/ML SDV IVPUSH PRN (16:27)
[2016-12-22] MEDS ORDERED: Morphine 2 MG/ML Syringe IVPUSH PRN (16:27)
[2016-12-22] MEDS ORDERED: Diazepam 5 MG Tab PO PRN (16:27)
[2016-12-22] MEDS ORDERED: Naloxone 0.4 MG/ML SDV IVPUSH PRN (16:27)
[2016-12-22] MEDS: Sodium Chloride 0.9% 1,000 ML IV SCH (17:16)
[2016-12-22] MEDS: Levothyroxine 25 MCG Tab PO SCH (18:21)
[2016-12-22] MEDS: Levothyroxine 100 MCG Tab PO SCH (18:21)
[2016-12-22] MEDS: Calcium Polycarbophil 625 MG Tab PO SCH (18:21)
[2016-12-22] MEDS: Calcium Carbonate 500 MG Tab.Chew PO SCH (18:22)
[2016-12-22] MEDS: buPROPion 150 MG Tab.ER PO SCH (18:22)
[2016-12-22] MEDS: Ketorolac 30 MG/ML SDV IVPUSH SCH (18:26)
[2016-12-22] MEDS: Brimonidine 0.15% Ophth Soln 5 ML Bottle EYERT SCH ×2 (18:38→21:36)
[2016-12-22] MEDS: Melatonin 3 MG Tab PO SCH (21:35)
[2016-12-22] MEDS: Terazosin 5 MG Cap PO SCH (21:35)
[2016-12-22] MEDS: Acetaminophen 1,000 MG in Premix Bag 1 BAG IV SCH (21:36)
[2016-12-22] MEDS: Mirtazapine 15 MG Tab PO SCH (21:36)
[2016-12-22] MEDS: Latanoprost 0.005% Ophth Soln 2.5 ML Bottle EYEBOTH SCH (21:37)
--- NOTE | 2016-12-22 21:40 | OR ---
DATE OF PROCEDURE: 12/22/2016 PREOPERATIVE DIAGNOSIS: Right femoral neck fracture, closed. POSTOPERATIVE DIAGNOSIS: Right femoral neck fracture, closed. PROCEDURE: Right total hip arthroplasty. ANESTHESIA: General endotracheal intubation. FLUID: Lactated Ringer solution. ESTIMATED BLOOD LOSS: 200 mL. COMPLICATIONS: None. SPECIMEN: None. DISCHARGE DISPOSITION: Stable to PACU. INSTRUMENTATION: Biomet Taperloc, size 16 stem, 40 mm head, +6 neck, 54 mm cup, and 15 mm screw as well as 20 mm screw. INDICATION FOR THE PROCEDURE: The patient was seen preoperatively. He had been admitted to the emergency department where he was found to have the above-mentioned diagnosis risks. The above-mentioned diagnosis was confirmed on imaging. Risks and benefits of the procedure were explained to the patient. Informed consent was obtained. DETAILS OF PROCEDURE: The patient was seen preoperatively by myself and the anesthesia staff in the preop holding area where the operative site was marked. He was brought to the operative suite by the anesthesia staff where general anesthesia was administered. He was placed into the left lateral recumbent position on a pegboard. All extremities were found to be well padded and axillary roll had been placed. Pillow was placed between his knees and ankles. The right lower extremity was then prepped and draped in a sterile manner. Time-out was called identifying the correct patient, correct procedure, the correct site, and antibiotics had been begun within the appropriate period of time. An incision was made approximately 7 cm proximal to the greater trochanter down to the level of lesser trochanter and carried down to the deep fascia. Bleeding during the case was controlled with Bovie electrocautery as well as an [place] unit. I went through the deep fascia with Bovie electrocautery and then used a Charnley retractor. I then started the level of lesser trochanter going down the level of lesser trochanter and then protecting a cuff of tissue at the gluteus medius and gluteus minimus tendon up to the greater trochanter. I then used an [place] for retraction, visualized the capsule, and then split the capsule longitudinally on the femoral neck and exposed the femoral neck. I applied sharp Hohmann on each side of the neck. I then made an additional neck cut to expose the femoral neck fracture better. I then used a corkscrew to remove the head which measured 46. I then placed sharp Hohmann retractors at 5 and 7 o'clock and then a Steinmann pin superiorly above the acetabulum for retraction. I then used a large curette to remove any soft tissue inside the fovea. I then used a 46 mm reamer and then went down to the medial wall and then sequentially reamed up to 53. We then irrigated and placed the cup. I did take imaging to make sure the cup was in good position. I then drilled and placed a 20 mm superior screw and a 15 mm posterior superior screw. We then placed the liner. Everything was in good position. I then concentrated on femoral preparation. I did make another cut just above the level of lesser trochanter, approximately 7 mm and then used a box attacher to expose the lateral aspect of the canal and then used lateralizing reamer after a canal finder, and then sequentially went from 4 to 16 on my broaches. I then trialed a -3. This appeared to be a little loose, but I was happy with my stem. We had taken another film at this time. I then irrigated with saline and then placed a 16 mm final Taperloc stem. I then trialed with a -3, which did have a little shuck and then inserted a 40 mm +6 head. This provided excellent stability with no Shuck. We then irrigated again with saline and then I closed the capsule in deep musculature with #5 Ethibond in a continuous manner followed by deep fascia closure with a #2 STRATAFIX followed by superficial closure with a 3-0 STRATAFIX followed by benedict, followed by a sterile dressing. The patient was then transferred back into his hospital bed in supine position and taken to recovery room in stable condition. Marshall Montesinos DO /[id number]
[2016-12-22] MEDS: Acetaminophen/oxyCODONE 325-5 MG Tab PO PRN (23:53)
[2016-12-23] MEDS: Acetaminophen 1,000 MG in Premix Bag 1 BAG IV SCH ×3 (02:05→14:37)
[2016-12-23] MEDS: Ketorolac 30 MG/ML SDV IVPUSH SCH ×3 (02:07→18:05)
[2016-12-23] MEDS: Levothyroxine 25 MCG Tab PO SCH (07:54)
[2016-12-23] MEDS: Levothyroxine 100 MCG Tab PO SCH (07:54)
[2016-12-23] MEDS: Acetaminophen/oxyCODONE 325-5 MG Tab PO PRN (07:54)
[2016-12-23] MEDS: Brimonidine 0.15% Ophth Soln 5 ML Bottle EYERT SCH ×2 (10:11→20:56)
[2016-12-23] MEDS: Aspirin 325 MG Tab.EC PO SCH (10:12)
[2016-12-23] MEDS: Calcium Carbonate 500 MG Tab.Chew PO SCH (10:13)
[2016-12-23] MEDS: Calcium Polycarbophil 625 MG Tab PO SCH (10:13)
[2016-12-23] MEDS: buPROPion 150 MG Tab.ER PO SCH (10:14)
[2016-12-23] MEDS: Metoprolol Succinate 50 MG Tab.ER PO SCH (10:15)
[2016-12-23] MEDS ORDERED: Polyethylene Glycol 3350 Powder 17 GM Packet PO PRN (13:42)
[2016-12-23] MEDS: oxyCODONE 5 MG Tab PO PRN ×2 (13:45→21:02)
[2016-12-23] MEDS: Docusate Sodium 100 MG Cap PO PRN ×2 (13:54→21:02)
[2016-12-23] MEDS: Terazosin 5 MG Cap PO SCH (20:55)
[2016-12-23] MEDS: Melatonin 3 MG Tab PO SCH (20:55)
[2016-12-23] MEDS: Latanoprost 0.005% Ophth Soln 2.5 ML Bottle EYEBOTH SCH (20:56)
[2016-12-23] MEDS: Mirtazapine 15 MG Tab PO SCH (20:56)
[2016-12-24] MEDS ORDERED: Ketorolac 30 MG/ML SDV IVPUSH PRN (02:00)
[2016-12-24] MEDS: oxyCODONE 5 MG Tab PO PRN ×3 (03:13→20:54)
[2016-12-24] MEDS: traMADol 50 MG Tab PO PRN ×2 (06:18→18:37)
[2016-12-24] MEDS: Magnesium Hydroxide 400 MG/5 ML Susp 30 ML Cup PO PRN ×2 (06:18→20:54)
[2016-12-24] MEDS: Levothyroxine 100 MCG Tab PO SCH (07:58)
[2016-12-24] MEDS: Levothyroxine 25 MCG Tab PO SCH (08:00)
[2016-12-24] MEDS: Brimonidine 0.15% Ophth Soln 5 ML Bottle EYERT SCH ×2 (09:02→20:44)
[2016-12-24] MEDS: Metoprolol Succinate 50 MG Tab.ER PO SCH (09:03)
[2016-12-24] MEDS: Calcium Polycarbophil 625 MG Tab PO SCH (09:03)
[2016-12-24] MEDS: buPROPion 150 MG Tab.ER PO SCH (09:03)
[2016-12-24] MEDS: Aspirin 325 MG Tab.EC PO SCH (09:03)
[2016-12-24] MEDS: Calcium Carbonate 500 MG Tab.Chew PO SCH (09:05)
--- NOTE | 2016-12-24 10:59 | PCM.PN ---
- General Info Functional Status: Reports: Pain Controlled - Review of Systems General: Reports: No Symptoms HEENT: Reports: No Symptoms Pulmonary: Reports: No Symptoms Cardiovascular: Reports: No Symptoms Gastrointestinal: Reports: No Symptoms Genitourinary: Reports: No Symptoms Musculoskeletal: Reports: Joint Pain Skin: Reports: No Symptoms Neurological: Reports: No Symptoms Psychiatric: Reports: No Symptoms - Patient Data Vitals - Most Recent: Last Vital Signs Temp 99.7 F 12/24/16 09:17 Pulse 109 H 12/24/16 09:03 Resp 16 12/24/16 07:42 BP 112/67 12/24/16 09:03 Pulse Ox 91 L 12/24/16 07:42 Weight - Most Recent: 193 lb 5 oz I&O - Last 24 Hours: Intake & Output 12/23/16 12/24/16 12/24/16 22:59 06:59 14:59 Intake Total 1000 360 Output Total 250 225 Balance 750 -225 360 Lab Results Last 24 Hours: Laboratory Results - last 24 hr 12/24/16 12/24/16 Range/Units 05:16 05:16 WBC 8.8 (4.5-11.0) K/uL RBC 3.54 L (4.30-5.90) M/uL Hgb 11.4 L (12.0-15.0) g/dL Hct 34.1 L (40.0-54.0) % MCV 96 (80-98) fL MCH 32 H (27-31) pg MCHC 33 (32-36) % Plt Count 160 (150-400) K/uL Neut % (Auto) 79 H (36-66) % Lymph % (Auto) 12 L (24-44) % [place] % (Auto) 9 H (2-6) % Eos % (Auto) 0 L (2-4) % Baso % (Auto) 0 (0-1) % Sodium 145 (140-148) mmol/L Potassium 3.9 (3.6-5.2) mmol/L Chloride 108 (100-108) mmol/L Carbon Dioxide 28 (21-32) mmol/L Anion Gap 9.4 (5.0-14.0) mmol/L BUN 23 H D (7-18) mg/dL Creatinine 1.1 (0.8-1.3) mg/dL Est Cr Clr Drug Dosing 63.60 mL/min Estimated GFR (MDRD) > 60 (>60) Glucose 111 H (74-106) mg/dL Calcium 8.5 (8.5-10.1) mg/dL Total Bilirubin 0.6 (0.2-1.0) mg/dL AST 38 H (15-37) U/L ALT 26 (12-78) U/L Alkaline Phosphatase 56 (46-116) U/L Total Protein 6.1 L (6.4-8.2) g/dL Albumin 2.8 L (3.4-5.0) g/dL Globulin 3.3 (2.3-3.5) g/dL Albumin/Globulin Ratio 0.9 L (1.2-2.2) Med Orders - Current: Current Medications Aspirin (Ecotrin) 325 mg PO DAILY [facility] Last Admin: 12/24/16 09:03 Dose: 325 mg Brimonidine Tartrate (Alphagan P 0.15% Ophth Soln) 0 ml EYERT BID [facility] Last Admin: 12/24/16 09:02 Dose: 1 drop Bupropion HCl (Wellbutrin Xl) 150 mg PO DAILY [facility] Last Admin: 12/24/16 09:03 Dose: 150 mg Calcium Carbonate/Glycine (Tums) 500 mg PO DAILY [facility] Last Admin: 12/24/16 09:05 Dose: 500 mg Calcium Polycarbophil (Fibercon) 625 mg PO DAILY [facility] Last Admin: 12/24/16 09:03 Dose: 625 mg Diazepam (Valium.) 5 mg PO Q6H PRN PRN Reason: Spasms Docusate Sodium (Colace) 100 mg PO BID PRN PRN Reason: Constipation Last Admin: 12/23/16 21:02 Dose: 100 mg Sodium Chloride (Normal Saline) 1,000 mls @ 0 mls/hr IV ASDIRECTED [facility] PRN Reason: KVO Last Admin: 12/22/16 17:16 Dose: 25 mls/hr Ketorolac Tromethamine (Toradol) 30 mg IVPUSH Q8H PRN PRN Reason: Pain Latanoprost (Xalatan 0.005% Ophth Soln) 0 ml EYEBOTH BEDTIME [facility] Last Admin: 12/23/16 20:56 Dose: 1 drop Levothyroxine Sodium (Synthroid) 100 mcg PO ACBREAKFAST [facility] Last Admin: 12/24/16 07:58 Dose: 100 mcg Levothyroxine Sodium (Levothyroxine) 25 mcg PO ACBREAKFAST [facility] Last Admin: 12/24/16 08:00 Dose: 25 mcg [place] Carbonate ([place] Carbonate) 150 mg PO DAILY [facility] Last Admin: 12/24/16 09:04 Dose: 150 mg Magnesium Hydroxide (Milk Of Magnesia) 30 ml PO Q6H PRN PRN Reason: Constipation Last Admin: 12/24/16 06:18 Dose: 30 ml Melatonin (Melatonin) 3 mg PO BEDTIME [facility] Last Admin: 12/23/16 20:55 Dose: 3 mg Metoprolol Succinate (Toprol Xl) 50 mg PO DAILY [facility] Last Admin: 12/24/16 09:03 Dose: 50 mg Mirtazapine (Remeron) 22.5 mg PO BEDTIME [facility] Last Admin: 12/23/16 20:56 Dose: 22.5 mg Morphine Sulfate (Morphine) 2 mg IVPUSH Q2H PRN PRN Reason: Pain Naloxone HCl (Narcan) 0.1 mg IV ASDIRECTED PRN PRN Reason: decreased respiratory rate Naloxone HCl (Narcan) 0.1 mg IVPUSH ONETIME PRN PRN Reason: Oversedation Oxycodone HCl (Oxycodone) 5 mg PO Q6H PRN PRN Reason: Pain Last Admin: 12/24/16 10:47 Dose: 5 mg Polyethylene Glycol (Miralax) 17 gm PO BID PRN PRN Reason: Constipation Last Admin: 12/24/16 10:48 Dose: 17 gm Ranitidine HCl (Zantac) 150 mg PO BID [facility] Last Admin: 12/24/16 09:03 Dose: 150 mg Terazosin HCl (Hytrin) 10 mg PO BEDTIME [facility] Last Admin: 12/23/16 20:55 Dose: 10 mg Tramadol HCl (Ultram) 100 mg PO Q6H PRN PRN Reason: Pain Last Admin: 12/24/16 06:18 Dose: 100 mg Discontinued Medications Ropivacaine 49.25 ml/Ketorolac Tromethamine 30 mg/Epinephrine HCl 0.5 mg/ Clonidine HCl 80 mcg/ Sodium Chloride 48.45 ml 0 ml INJECT ONETIME ONE Stop: 12/22/16 12:46 Last Admin: 12/22/16 15:44 Dose: 100 ml Dexamethasone (Dexamethasone) Confirm Administered Dose 4 mg .ROUTE .STK-MED ONE Stop: 12/22/16 13:43 Fentanyl (Sublimaze) Confirm Administered Dose 250 mcg .ROUTE .STK-MED ONE Stop: 12/22/16 13:42 Gentamicin Sulfate (Gentamicin) Confirm Administered Dose 240 mg .ROUTE .STK- MED ONE Stop: 12/22/16 07:24 Last Admin: 12/22/16 14:25 Dose: 240 mg Glycopyrrolate (Robinul) Confirm Administered Dose 1 mg .ROUTE .STK-MED ONE Stop: 12/22/16 13:43 Hydromorphone HCl (Dilaudid) 0.5 mg IVPUSH ONETIME ONE Stop: 12/20/16 18:17 Last Admin: 12/20/16 18:29 Dose: 0.5 mg Hydromorphone HCl (Dilaudid) 1 mg IVPUSH ONETIME ONE Stop: 12/20/16 19:31 Last Admin: 12/20/16 19:33 Dose: 1 mg Hydromorphone HCl (Dilaudid Transfer Station Operator 15 Mg In Ns 30 Ml) 0 mg IV ASDIRECTED PRN; Protocol 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 Last Admin: 12/20/16 22:53 Dose: 15 mg Hydromorphone HCl (Dilaudid Transfer Station Operator 15 Mg In Ns 30 Ml) 0 mg IV ASDIRECTED PRN; Protocol PRN Reason: PAIN Tranexamic Acid 880 mg/ Sodium (Chloride) 58.8 mls @ 235.2 mls/hr IV Q2H [facility] Stop: 12/22/16 14:59 Last Admin: 12/22/16 16:31 Dose: 235.2 mls/hr Cefazolin Sodium 2 gm/ Sodium (Chloride) 50 mls @ 100 mls/hr IV ONETIME ONE Stop: 12/22/16 12:44 Last Admin: 12/22/16 15:40 Dose: Not Given Lactated Ringer's (Ringers, Lactated) Confirm Administered Dose 1,000 mls @ as directed .ROUTE .STK-MED ONE Stop: 12/22/16 14:59 Acetaminophen 1,000 mg/ Premix 100 mls @ 400 mls/hr IV Q6H [facility] Stop: 12/23/16 14:14 Last Admin: 12/23/16 14:37 Dose: 400 mls/hr Ketamine HCl (Ketalar) 36 mg IV ONETIME ONE Stop: 12/22/16 12:46 Last Admin: 12/22/16 18:23 Dose: Not Given Ketorolac Tromethamine (Toradol) 30 mg IVPUSH Q8H PRN PRN Reason: Pain Stop: 12/27/16 16:27 Ketorolac Tromethamine (Toradol) 30 mg IVPUSH Q8H [facility] Stop: 12/23/16 18:01 Last Admin: 12/23/16 18:05 Dose: 30 mg Latanoprost (Xalatan 0.005% Ophth Soln) 2.5 ml EYEBOTH BEDTIME [facility] Last Admin: 12/20/16 23:26 Dose: 1 drop Naloxone HCl (Narcan) Confirm Administered Dose 0.4 mg .ROUTE .STK-MED ONE Stop: 12/22/16 16:12 Neostigmine Methylsulfate (Neostigmine) Confirm Administered Dose 5 mg .ROUTE .STK-MED ONE Stop: 12/22/16 13:43 Ondansetron HCl (Zofran) 4 mg IVPUSH ONETIME ONE Stop: 12/20/16 18:18 Last Admin: 12/20/16 18:47 Dose: Not Given Ondansetron HCl (Zofran) Confirm Administered Dose 4 mg .ROUTE .STK-MED ONE Stop: 12/22/16 13:43 Oxycodone/Acetaminophen (Percocet 325-5 Mg) 1 tab PO Q4H PRN PRN Reason: Pain Last Admin: 12/23/16 07:54 Dose: 1 tab Povidone Iodine (Betadine 10% Soln) Confirm Administered Dose 1 ml .ROUTE .STK- MED ONE Stop: 12/22/16 07:24 Propofol (Diprivan 20 Ml) Confirm Administered Dose 200 mg .ROUTE .STK-MED ONE Stop: 12/22/16 13:43 Rocuronium [place] (Zemuron) Confirm Administered Dose 50 mg .ROUTE .STK-MED ONE Stop: 12/22/16 13:43 Succinylcholine Chloride (Quelicin) Confirm Administered Dose 200 mg .ROUTE .STK -MED ONE Stop: 12/22/16 13:43 - Exam General: Alert, Oriented HEENT: Pupils Equal, Pupils Reactive, EOMI, Mucous Membr. Moist/[place] Neck: Supple Lungs: Normal Respiratory Effort Extremities: Normal Inspection, Joint Swelling Skin: Warm, Dry, Intact Wound/Incisions: Healing Well, Dressing Dry and Intact, No Drainage Neurological: No New Focal Deficit Psy/Mental Status: Alert, Normal Affect - Problem List & Annotations (1) Fracture of femoral neck, right, closed SNOMED Code(s): 308493105 Code(s): S72.001A - FRACTURE OF UNSP PART OF NECK OF RIGHT FEMUR, INIT Status: Acute Current Visit: Yes Qualifiers: Encounter type: initial encounter Qualified Code(s): S72.001A - Fracture of unspecified part of neck of right femur, initial encounter for closed fracture - Problem List Review Problem List Initiated/Reviewed/Updated: Yes - My Orders Last 24 Hours: My Active Orders 12/23/16 13:42 Docusate Sodium [Colace] 100 mg PO BID PRN Magnesium Hydroxide [Milk of Magnesia] 30 ml PO Q6H PRN Polyethylene Glycol 3350 [MiraLAX] 17 gm PO BID PRN 12/24/16 02:00 Ketorolac [Toradol] 30 mg IVPUSH Q8H PRN 12/25/16 05:15 CBC WITH AUTO DIFF [HEME] DAILY COMPREHENSIVE METABOLIC PN,CMP [CHEM] DAILY 12/26/16 05:15 CBC WITH AUTO DIFF [HEME] DAILY COMPREHENSIVE METABOLIC PN,CMP [CHEM] DAILY - Plan Plan:: Assessment/Plan: POD Right ROSSI Plan: PT/OT/Pain control/DVT prophylaxis dc tomorrow to transitional care 3 week f/u in ortho clinic
[2016-12-24] MEDS: Terazosin 5 MG Cap PO SCH (20:43)
[2016-12-24] MEDS: Mirtazapine 15 MG Tab PO SCH (20:43)
[2016-12-24] MEDS: Melatonin 3 MG Tab PO SCH (20:43)
[2016-12-24] MEDS: Latanoprost 0.005% Ophth Soln 2.5 ML Bottle EYEBOTH SCH (20:44)
[2016-12-24] MEDS: Docusate Sodium 100 MG Cap PO PRN (20:54)
[2016-12-25] MEDS: traMADol 50 MG Tab PO PRN ×2 (02:21→08:21)
[2016-12-25 07:42] VITALS: BP 116/73
[2016-12-25] MEDS: Levothyroxine 100 MCG Tab PO SCH (08:11)
[2016-12-25] MEDS: Levothyroxine 25 MCG Tab PO SCH (08:11)
[2016-12-25] MEDS: Brimonidine 0.15% Ophth Soln 5 ML Bottle EYERT SCH (08:12)
[2016-12-25] MEDS: Aspirin 325 MG Tab.EC PO SCH (08:12)
[2016-12-25] MEDS: Calcium Polycarbophil 625 MG Tab PO SCH (08:13)
[2016-12-25] MEDS: Metoprolol Succinate 50 MG Tab.ER PO SCH (08:15)
[2016-12-25] MEDS: buPROPion 150 MG Tab.ER PO SCH (08:16)
[2016-12-25] MEDS: Calcium Carbonate 500 MG Tab.Chew PO SCH (08:16)
--- NOTE | 2016-12-25 08:49 | CR ---
Hip Min 1V Rt, Hip Min 1V Rt, Hip Min 1V w Pelvis Rt INDICATION: POST OP, RIGHT TOTAL HIP FINDINGS: Initial portable studies demonstrates intraoperative portable x-rays during right ROSSI place ment. Dedicated right hip x-rays demonstrate postoperative changes right total hip arthroplasty. Negative f or postoperative purposes. Radiation prostate seeds in place.
[2016-12-25] MEDS ORDERED: Bisacodyl 10 MG Supp RECTAL ONE (11:00)
--- NOTE | 2016-12-25 11:48 | PCM.PN ---
- General Info Date of Service: 12/25/16 Functional Status: Reports: Pain Controlled - Review of Systems General: Reports: No Symptoms HEENT: Reports: No Symptoms Pulmonary: Reports: No Symptoms Cardiovascular: Reports: No Symptoms Gastrointestinal: Reports: No Symptoms Genitourinary: Reports: No Symptoms Musculoskeletal: Reports: No Symptoms Neurological: Reports: No Symptoms Psychiatric: Reports: No Symptoms - Patient Data Vitals - Most Recent: Last Vital Signs Temp 99.9 F 12/25/16 07:39 Pulse 97 12/25/16 08:15 Resp 16 12/25/16 07:39 BP 116/73 12/25/16 08:15 Pulse Ox 90 L 12/25/16 07:39 Weight - Most Recent: 193 lb 5 oz I&O - Last 24 Hours: Intake & Output 12/24/16 12/25/16 12/25/16 22:59 06:59 14:59 Intake Total 600 100 700 Output Total 300 450 Balance 300 100 250 Lab Results Last 24 Hours: Laboratory Results - last 24 hr 12/25/16 12/25/16 Range/Units 05:48 05:48 WBC 8.2 (4.5-11.0) K/uL RBC 3.29 L (4.30-5.90) M/uL Hgb 10.4 L (12.0-15.0) g/dL Hct 32.0 L (40.0-54.0) % MCV 97 (80-98) fL MCH 32 H (27-31) pg MCHC 33 (32-36) % Plt Count 175 (150-400) K/uL Neut % (Auto) 70 H (36-66) % Lymph % (Auto) 19 L (24-44) % [place] % (Auto) 10 H (2-6) % Eos % (Auto) 1 L (2-4) % Baso % (Auto) 0 (0-1) % Sodium 141 (140-148) mmol/L Potassium 3.8 (3.6-5.2) mmol/L Chloride 105 (100-108) mmol/L Carbon Dioxide 29 (21-32) mmol/L Anion Gap 7.5 (5.0-14.0) mmol/L BUN 17 (7-18) mg/dL Creatinine 0.8 (0.8-1.3) mg/dL Est Cr Clr Drug Dosing 87.45 mL/min Estimated GFR (MDRD) > 60 (>60) Glucose 109 H (74-106) mg/dL Calcium 8.1 L (8.5-10.1) mg/dL Total Bilirubin 0.4 (0.2-1.0) mg/dL AST 41 H (15-37) U/L ALT 30 (12-78) U/L Alkaline Phosphatase 59 (46-116) U/L Total Protein 5.9 L (6.4-8.2) g/dL Albumin 2.5 L (3.4-5.0) g/dL Globulin 3.4 (2.3-3.5) g/dL Albumin/Globulin Ratio 0.7 L (1.2-2.2) Med Orders - Current: Current Medications Aspirin (Ecotrin) 325 mg PO DAILY [facility] Last Admin: 12/25/16 08:12 Dose: 325 mg Brimonidine Tartrate (Alphagan P 0.15% Ophth Soln) 0 ml EYERT BID [facility] Last Admin: 12/25/16 08:12 Dose: 1 drop Bupropion HCl (Wellbutrin Xl) 150 mg PO DAILY [facility] Last Admin: 12/25/16 08:16 Dose: 150 mg Calcium Carbonate/Glycine (Tums) 500 mg PO DAILY [facility] Last Admin: 12/25/16 08:16 Dose: 500 mg Calcium Polycarbophil (Fibercon) 625 mg PO DAILY [facility] Last Admin: 12/25/16 08:13 Dose: 625 mg Diazepam (Valium.) 5 mg PO Q6H PRN PRN Reason: Spasms Docusate Sodium (Colace) 100 mg PO BID PRN PRN Reason: Constipation Last Admin: 12/24/16 20:54 Dose: 100 mg Sodium Chloride (Normal Saline) 1,000 mls @ 0 mls/hr IV ASDIRECTED [facility] PRN Reason: KVO Last Admin: 12/22/16 17:16 Dose: 25 mls/hr Ketorolac Tromethamine (Toradol) 30 mg IVPUSH Q8H PRN PRN Reason: Pain Latanoprost (Xalatan 0.005% Ophth Soln) 0 ml EYEBOTH BEDTIME [facility] Last Admin: 12/24/16 20:44 Dose: 1 drop Levothyroxine Sodium (Synthroid) 100 mcg PO ACBREAKFAST [facility] Last Admin: 12/25/16 08:11 Dose: 100 mcg Levothyroxine Sodium (Levothyroxine) 25 mcg PO ACBREAKFAST [facility] Last Admin: 12/25/16 08:11 Dose: 25 mcg [place] Carbonate ([place] Carbonate) 150 mg PO DAILY [facility] Last Admin: 12/25/16 08:15 Dose: 150 mg Magnesium Hydroxide (Milk Of Magnesia) 30 ml PO Q6H PRN PRN Reason: Constipation Last Admin: 12/24/16 20:54 Dose: 30 ml Melatonin (Melatonin) 3 mg PO BEDTIME [facility] Last Admin: 12/24/16 20:43 Dose: 3 mg Metoprolol Succinate (Toprol Xl) 50 mg PO DAILY [facility] Last Admin: 12/25/16 08:15 Dose: 50 mg Mirtazapine (Remeron) 22.5 mg PO BEDTIME [facility] Last Admin: 12/24/16 20:43 Dose: 22.5 mg Morphine Sulfate (Morphine) 2 mg IVPUSH Q2H PRN PRN Reason: Pain Naloxone HCl (Narcan) 0.1 mg IV ASDIRECTED PRN PRN Reason: decreased respiratory rate Naloxone HCl (Narcan) 0.1 mg IVPUSH ONETIME PRN PRN Reason: Oversedation Oxycodone HCl (Oxycodone) 5 mg PO Q6H PRN PRN Reason: Pain Last Admin: 12/24/16 20:54 Dose: 5 mg Polyethylene Glycol (Miralax) 17 gm PO BID PRN PRN Reason: Constipation Last Admin: 12/24/16 10:48 Dose: 17 gm Ranitidine HCl (Zantac) 150 mg PO BID [facility] Last Admin: 12/25/16 08:17 Dose: 150 mg Terazosin HCl (Hytrin) 10 mg PO BEDTIME [facility] Last Admin: 12/24/16 20:43 Dose: 10 mg Tramadol HCl (Ultram) 100 mg PO Q6H PRN PRN Reason: Pain Last Admin: 12/25/16 08:21 Dose: 100 mg Discontinued Medications Bisacodyl (Dulcolax) 10 mg RECTAL ONETIME ONE Stop: 12/25/16 11:01 Last Admin: 12/25/16 11:03 Dose: 10 mg Ropivacaine 49.25 ml/Ketorolac Tromethamine 30 mg/Epinephrine HCl 0.5 mg/ Clonidine HCl 80 mcg/ Sodium Chloride 48.45 ml 0 ml INJECT ONETIME ONE Stop: 12/22/16 12:46 Last Admin: 12/22/16 15:44 Dose: 100 ml Dexamethasone (Dexamethasone) Confirm Administered Dose 4 mg .ROUTE .STK-MED ONE Stop: 12/22/16 13:43 Fentanyl (Sublimaze) Confirm Administered Dose 250 mcg .ROUTE .STK-MED ONE Stop: 12/22/16 13:42 Gentamicin Sulfate (Gentamicin) Confirm Administered Dose 240 mg .ROUTE .STK- MED ONE Stop: 12/22/16 07:24 Last Admin: 12/22/16 14:25 Dose: 240 mg Glycopyrrolate (Robinul) Confirm Administered Dose 1 mg .ROUTE .STK-MED ONE Stop: 12/22/16 13:43 Hydromorphone HCl (Dilaudid) 0.5 mg IVPUSH ONETIME ONE Stop: 12/20/16 18:17 Last Admin: 12/20/16 18:29 Dose: 0.5 mg Hydromorphone HCl (Dilaudid) 1 mg IVPUSH ONETIME ONE Stop: 12/20/16 19:31 Last Admin: 12/20/16 19:33 Dose: 1 mg Hydromorphone HCl (Dilaudid Charging Machine Operator 15 Mg In Ns 30 Ml) 0 mg IV ASDIRECTED PRN; Protocol 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 Last Admin: 12/20/16 22:53 Dose: 15 mg Hydromorphone HCl (Dilaudid Charging Machine Operator 15 Mg In Ns 30 Ml) 0 mg IV ASDIRECTED PRN; Protocol PRN Reason: PAIN Tranexamic Acid 880 mg/ Sodium (Chloride) 58.8 mls @ 235.2 mls/hr IV Q2H [facility] Stop: 12/22/16 14:59 Last Admin: 12/22/16 16:31 Dose: 235.2 mls/hr Cefazolin Sodium 2 gm/ Sodium (Chloride) 50 mls @ 100 mls/hr IV ONETIME ONE Stop: 12/22/16 12:44 Last Admin: 12/22/16 15:40 Dose: Not Given Lactated Ringer's (Ringers, Lactated) Confirm Administered Dose 1,000 mls @ as directed .ROUTE .STK-MED ONE Stop: 12/22/16 14:59 Acetaminophen 1,000 mg/ Premix 100 mls @ 400 mls/hr IV Q6H [facility] Stop: 12/23/16 14:14 Last Admin: 12/23/16 14:37 Dose: 400 mls/hr Ketamine HCl (Ketalar) 36 mg IV ONETIME ONE Stop: 12/22/16 12:46 Last Admin: 12/22/16 18:23 Dose: Not Given Ketorolac Tromethamine (Toradol) 30 mg IVPUSH Q8H PRN PRN Reason: Pain Stop: 12/27/16 16:27 Ketorolac Tromethamine (Toradol) 30 mg IVPUSH Q8H [facility] Stop: 12/23/16 18:01 Last Admin: 12/23/16 18:05 Dose: 30 mg Latanoprost (Xalatan 0.005% Ophth Soln) 2.5 ml EYEBOTH BEDTIME [facility] Last Admin: 12/20/16 23:26 Dose: 1 drop Naloxone HCl (Narcan) Confirm Administered Dose 0.4 mg .ROUTE .STK-MED ONE Stop: 12/22/16 16:12 Neostigmine Methylsulfate (Neostigmine) Confirm Administered Dose 5 mg .ROUTE .STK-MED ONE Stop: 12/22/16 13:43 Ondansetron HCl (Zofran) 4 mg IVPUSH ONETIME ONE Stop: 12/20/16 18:18 Last Admin: 12/20/16 18:47 Dose: Not Given Ondansetron HCl (Zofran) Confirm Administered Dose 4 mg .ROUTE .STK-MED ONE Stop: 12/22/16 13:43 Oxycodone/Acetaminophen (Percocet 325-5 Mg) 1 tab PO Q4H PRN PRN Reason: Pain Last Admin: 12/23/16 07:54 Dose: 1 tab Povidone Iodine (Betadine 10% Soln) Confirm Administered Dose 1 ml .ROUTE .STK- MED ONE Stop: 12/22/16 07:24 Propofol (Diprivan 20 Ml) Confirm Administered Dose 200 mg .ROUTE .STK-MED ONE Stop: 12/22/16 13:43 Rocuronium [place] (Zemuron) Confirm Administered Dose 50 mg .ROUTE .STK-MED ONE Stop: 12/22/16 13:43 Succinylcholine Chloride (Quelicin) Confirm Administered Dose 200 mg .ROUTE .STK -MED ONE Stop: 12/22/16 13:43 - Exam General: Alert, Oriented Neck: Supple Lungs: Clear to Auscultation, Normal Respiratory Effort Cardiovascular: Regular Rate, Regular Rhythm GI/Abdominal Exam: Normal Bowel Sounds, Soft, Non-Tender, No Organomegaly, No Distention, No Abnormal Bruit, No Mass, Pelvis Stable Extremities: Other (pain right hip) Peripheral Pulses: 1+: Radial (L), Radial (R) - Problem List Review Problem List Initiated/Reviewed/Updated: Yes - Plan Plan:: Assessment/Plan: S/P right hip replacement: Stable presently. Hb 10.4, WBC 8.2 Discharged to rehab care in [place].
--- NOTE | 2016-12-25 11:57 | PCM.DCSUM1 ---
Discharge Summary - Hospital Course Free Text/Narrative:: Fell on ice and fractured his right hip - Discharge Data Discharge Date: 12/25/16 Discharge Disposition: DC/Tfer to Inpt Rehab Fac 62 Condition: Good - Patient Summary/Data Operative Procedure(s) Performed: Total hip replacement Complications: none Consults: Consultations 12/21/16 08:26 Consult to Physician [CONS] Routine Consulting Provider: Marshall Montesinos Call Completed to Consulting Physician: Yes Reason for Consult: right hip fracture 12/22/16 16:27 OT Evaluation and Treatment [CONS] Routine Please Evaluate and Treat. OT Reason for Consult: Strengthening This query below is only for informational purposes and is not editable. Admission Diagnosis/Problem: Hip fracture requiring operative repair PT Evaluation and Treatment [CONS] Routine Please Evaluate and Treat. PT Reason for Consult: Strengthening This query below is only for informational purposes and is not editable. Admission Diagnosis/Problem: Hip fracture requiring operative repair Hospital Course: Had a hip replacement and did very well and is being transferred to rehab. in [place]. - Patient Instructions Diet: Usual Diet as Tolerated Activity: Apply Ice, As Tolerated, Full Weight Bearing, No Lifting Over 10 Pounds Driving: Do Not Drive Showering/Bathing: May Shower Wound/Incision Care: Keep Operative Site/Wound Site Clean and Dry, Change Dressing Daily Notify Provider of: Fever, Increased Pain, Swelling and Redness, Drainage, Nausea and/or Vomiting - Discharge Plan Home Medications: Home Meds Levothyroxine Sodium [Synthroid] 0.125 mcg PO DAILY 10/18/12 [History] Lovastatin [Mevacor] 40 mg PO BEDTIME 10/18/12 [History] Mirtazapine [Remeron] 22.5 mg PO BEDTIME 10/18/12 [History] Terazosin HCl [Terazosin] 10 mg PO BEDTIME 10/18/12 [History] buPROPion HCl [Wellbutrin Xl] 150 mg PO DAILY 10/18/12 [History] Clopidogrel [Plavix] 1 tab PO DAILY 01/05/15 [History] [place] Carbonate 1 cap PO DAILY 01/05/15 [History] Metoprolol Succinate 1 tab PO DAILY 01/05/15 [History] Ranitidine [Zantac] 1 tab PO BID 01/05/15 [History] Brimonidine [Alphagan P 0.15% Ophth Soln] 1 drop EYERT BID 09/27/16 [History] Calcium Carbonate [Calcium] 500 mg PO DAILY 09/27/16 [History] Calcium Polycarbophil [Fibercon] 625 mg PO DAILY 09/27/16 [History] Cranberry 400 mg PO TID 09/27/16 [History] Latanoprost [Xalatan 0.005% Ophth Soln] 2.5 ml EYEBOTH BEDTIME 09/27/16 [History ] Melatonin 3 mg PO BEDTIME 09/27/16 [History] Multivitamin [Multi-Vitamin Daily] 1 each PO DAILY 09/27/16 [History] Lycir-L-[id number] [Beano] 1 each PO DAILY 12/20/16 [History] traMADol [Ultram] 100 mg PO Q6H PRN tablet 12/25/16 [Rx] Patient Handouts: Total Hip Replacement, Care After, [id number] Referrals: James Branham Sr, MD [Primary Care Provider] - - Discharge Summary/Plan Comment DC Time >30 min.: Yes Discharge Summary/Plan Comment: Right total hip replacement. discharged to rehab. - Patient Data Vitals - Most Recent: Last Vital Signs Temp 99.9 F 12/25/16 07:39 Pulse 97 12/25/16 08:15 Resp 16 12/25/16 07:39 BP 116/73 12/25/16 08:15 Pulse Ox 90 L 12/25/16 07:39 Weight - Most Recent: 193 lb 5 oz I&O - Last 24 hours: Intake & Output 12/24/16 12/25/16 12/25/16 22:59 06:59 14:59 Intake Total 600 100 700 Output Total 300 450 Balance 300 100 250 Lab Results - Last 24 hrs: Laboratory Results - last 24 hr 12/25/16 12/25/16 Range/Units 05:48 05:48 WBC 8.2 (4.5-11.0) K/uL RBC 3.29 L (4.30-5.90) M/uL Hgb 10.4 L (12.0-15.0) g/dL Hct 32.0 L (40.0-54.0) % MCV 97 (80-98) fL MCH 32 H (27-31) pg MCHC 33 (32-36) % Plt Count 175 (150-400) K/uL Neut % (Auto) 70 H (36-66) % Lymph % (Auto) 19 L (24-44) % [place] % (Auto) 10 H (2-6) % Eos % (Auto) 1 L (2-4) % Baso % (Auto) 0 (0-1) % Sodium 141 (140-148) mmol/L Potassium 3.8 (3.6-5.2) mmol/L Chloride 105 (100-108) mmol/L Carbon Dioxide 29 (21-32) mmol/L Anion Gap 7.5 (5.0-14.0) mmol/L BUN 17 (7-18) mg/dL Creatinine 0.8 (0.8-1.3) mg/dL Est Cr Clr Drug Dosing 87.45 mL/min Estimated GFR (MDRD) > 60 (>60) Glucose 109 H (74-106) mg/dL Calcium 8.1 L (8.5-10.1) mg/dL Total Bilirubin 0.4 (0.2-1.0) mg/dL AST 41 H (15-37) U/L ALT 30 (12-78) U/L Alkaline Phosphatase 59 (46-116) U/L Total Protein 5.9 L (6.4-8.2) g/dL Albumin 2.5 L (3.4-5.0) g/dL Globulin 3.4 (2.3-3.5) g/dL Albumin/Globulin Ratio 0.7 L (1.2-2.2) Med Orders - Current: Current Medications Aspirin (Ecotrin) 325 mg PO DAILY [facility] Last Admin: 12/25/16 08:12 Dose: 325 mg Brimonidine Tartrate (Alphagan P 0.15% Ophth Soln) 0 ml EYERT BID [facility] Last Admin: 12/25/16 08:12 Dose: 1 drop Bupropion HCl (Wellbutrin Xl) 150 mg PO DAILY [facility] Last Admin: 12/25/16 08:16 Dose: 150 mg Calcium Carbonate/Glycine (Tums) 500 mg PO DAILY [facility] Last Admin: 12/25/16 08:16 Dose: 500 mg Calcium Polycarbophil (Fibercon) 625 mg PO DAILY [facility] Last Admin: 12/25/16 08:13 Dose: 625 mg Diazepam (Valium.) 5 mg PO Q6H PRN PRN Reason: Spasms Docusate Sodium (Colace) 100 mg PO BID PRN PRN Reason: Constipation Last Admin: 12/24/16 20:54 Dose: 100 mg Sodium Chloride (Normal Saline) 1,000 mls @ 0 mls/hr IV ASDIRECTED LOIDA PRN Reason: KVO Last Admin: 12/22/16 17:16 Dose: 25 mls/hr Ketorolac Tromethamine (Toradol) 30 mg IVPUSH Q8H PRN PRN Reason: Pain Latanoprost (Xalatan 0.005% Ophth Soln) 0 ml EYEBOTH BEDTIME [facility] Last Admin: 12/24/16 20:44 Dose: 1 drop Levothyroxine Sodium (Synthroid) 100 mcg PO ACBREAKFAST [facility] Last Admin: 12/25/16 08:11 Dose: 100 mcg Levothyroxine Sodium (Levothyroxine) 25 mcg PO ACBREAKFAST [facility] Last Admin: 12/25/16 08:11 Dose: 25 mcg [place] Carbonate ([place] Carbonate) 150 mg PO DAILY [facility] Last Admin: 12/25/16 08:15 Dose: 150 mg Magnesium Hydroxide (Milk Of Magnesia) 30 ml PO Q6H PRN PRN Reason: Constipation Last Admin: 12/24/16 20:54 Dose: 30 ml Melatonin (Melatonin) 3 mg PO BEDTIME [facility] Last Admin: 12/24/16 20:43 Dose: 3 mg Metoprolol Succinate (Toprol Xl) 50 mg PO DAILY [facility] Last Admin: 12/25/16 08:15 Dose: 50 mg Mirtazapine (Remeron) 22.5 mg PO BEDTIME [facility] Last Admin: 12/24/16 20:43 Dose: 22.5 mg Morphine Sulfate (Morphine) 2 mg IVPUSH Q2H PRN PRN Reason: Pain Naloxone HCl (Narcan) 0.1 mg IV ASDIRECTED PRN PRN Reason: decreased respiratory rate Naloxone HCl (Narcan) 0.1 mg IVPUSH ONETIME PRN PRN Reason: Oversedation Oxycodone HCl (Oxycodone) 5 mg PO Q6H PRN PRN Reason: Pain Last Admin: 12/24/16 20:54 Dose: 5 mg Polyethylene Glycol (Miralax) 17 gm PO BID PRN PRN Reason: Constipation Last Admin: 12/24/16 10:48 Dose: 17 gm Ranitidine HCl (Zantac) 150 mg PO BID LOIDA Last Admin: 12/25/16 08:17 Dose: 150 mg Terazosin HCl (Hytrin) 10 mg PO BEDTIME LOIDA Last Admin: 12/24/16 20:43 Dose: 10 mg Tramadol HCl (Ultram) 100 mg PO Q6H PRN PRN Reason: Pain Last Admin: 12/25/16 08:21 Dose: 100 mg Discontinued Medications Bisacodyl (Dulcolax) 10 mg RECTAL ONETIME ONE Stop: 12/25/16 11:01 Last Admin: 12/25/16 11:03 Dose: 10 mg Ropivacaine 49.25 ml/Ketorolac Tromethamine 30 mg/Epinephrine HCl 0.5 mg/ Clonidine HCl 80 mcg/ Sodium Chloride 48.45 ml 0 ml INJECT ONETIME ONE Stop: 12/22/16 12:46 Last Admin: 12/22/16 15:44 Dose: 100 ml Dexamethasone (Dexamethasone) Confirm Administered Dose 4 mg .ROUTE .STK-MED ONE Stop: 12/22/16 13:43 Fentanyl (Sublimaze) Confirm Administered Dose 250 mcg .ROUTE .STK-MED ONE Stop: 12/22/16 13:42 Gentamicin Sulfate (Gentamicin) Confirm Administered Dose 240 mg .ROUTE .STK- MED ONE Stop: 12/22/16 07:24 Last Admin: 12/22/16 14:25 Dose: 240 mg Glycopyrrolate (Robinul) Confirm Administered Dose 1 mg .ROUTE .STK-MED ONE Stop: 12/22/16 13:43 Hydromorphone HCl (Dilaudid) 0.5 mg IVPUSH ONETIME ONE Stop: 12/20/16 18:17 Last Admin: 12/20/16 18:29 Dose: 0.5 mg Hydromorphone HCl (Dilaudid) 1 mg IVPUSH ONETIME ONE Stop: 12/20/16 19:31 Last Admin: 12/20/16 19:33 Dose: 1 mg Hydromorphone HCl (Dilaudid [employer] 15 Mg In Ns 30 Ml) 0 mg IV ASDIRECTED PRN; 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 Last Admin: 12/20/16 22:53 Dose: 15 mg Hydromorphone HCl (Dilaudid Conference [employer] Event [employer]iser 15 Mg In Ns 30 Ml) 0 mg IV ASDIRECTED PRN; Protocol PRN Reason: PAIN Tranexamic Acid 880 mg/ Sodium (Chloride) 58.8 mls @ 235.2 mls/hr IV Q2H [facility] Stop: 12/22/16 14:59 Last Admin: 12/22/16 16:31 Dose: 235.2 mls/hr Cefazolin Sodium 2 gm/ Sodium (Chloride) 50 mls @ 100 mls/hr IV ONETIME ONE Stop: 12/22/16 12:44 Last Admin: 12/22/16 15:40 Dose: Not Given Lactated Ringer's (Ringers, Lactated) Confirm Administered Dose 1,000 mls @ as directed .ROUTE .STK-MED ONE Stop: 12/22/16 14:59 Acetaminophen 1,000 mg/ Premix 100 mls @ 400 mls/hr IV Q6H [facility] Stop: 12/23/16 14:14 Last Admin: 12/23/16 14:37 Dose: 400 mls/hr Ketamine HCl (Ketalar) 36 mg IV ONETIME ONE Stop: 12/22/16 12:46 Last Admin: 12/22/16 18:23 Dose: Not Given Ketorolac Tromethamine (Toradol) 30 mg IVPUSH Q8H PRN PRN Reason: Pain Stop: 12/27/16 16:27 Ketorolac Tromethamine (Toradol) 30 mg IVPUSH Q8H [facility] Stop: 12/23/16 18:01 Last Admin: 12/23/16 18:05 Dose: 30 mg Latanoprost (Xalatan 0.005% Ophth Soln) 2.5 ml EYEBOTH BEDTIME [facility] Last Admin: 12/20/16 23:26 Dose: 1 drop Naloxone HCl (Narcan) Confirm Administered Dose 0.4 mg .ROUTE .STK-MED ONE Stop: 12/22/16 16:12 Neostigmine Methylsulfate (Neostigmine) Confirm Administered Dose 5 mg .ROUTE .STK-MED ONE Stop: 12/22/16 13:43 Ondansetron HCl (Zofran) 4 mg IVPUSH ONETIME ONE Stop: 12/20/16 18:18 Last Admin: 12/20/16 18:47 Dose: Not Given Ondansetron HCl (Zofran) Confirm Administered Dose 4 mg .ROUTE .STK-MED ONE Stop: 12/22/16 13:43 Oxycodone/Acetaminophen (Percocet 325-5 Mg) 1 tab PO Q4H PRN PRN Reason: Pain Last Admin: 12/23/16 07:54 Dose: 1 tab Povidone Iodine (Betadine 10% Soln) Confirm Administered Dose 1 ml .ROUTE .STK- MED ONE Stop: 12/22/16 07:24 Propofol (Diprivan 20 Ml) Confirm Administered Dose 200 mg .ROUTE .STK-MED ONE Stop: 12/22/16 13:43 Rocuronium [place] (Zemuron) Confirm Administered Dose 50 mg .ROUTE .STK-MED ONE Stop: 12/22/16 13:43 Succinylcholine Chloride (Quelicin) Confirm Administered Dose 200 mg .ROUTE .STK -MED ONE Stop: 12/22/16 13:43 *Q Meaningful Use (DIS) - VTE *Q VTE Criteria *Q: - Stroke *Q Stroke Criteria *Q: - AMI *Q AMI Criteria *Q:
[2016-12-25] MEDS: oxyCODONE 5 MG Tab PO PRN (13:07)
== END 2016-12-25 13:39 | DRG 470 ==
LOC: JP.ED 17:43 → JP.MS 20:49
PROVIDERS: ADMIT Internal Medicine; ATTEND Internal Medicine
PROC: 30253L1 (ICD-10-PCS; 2016-12-21)
PROC: 30253K1 (ICD-10-PCS; 2016-12-21)
PROC: 0SR90JZ Replacement of Right Hip Joint with Synthetic Substitute, Open Approach (ICD-10-PCS; principal; 2016-12-22)
DX: S72.001A Fracture of unspecified part of neck of right femur, initial encounter for closed fracture (principal); W00.9XXA Unspecified fall due to ice and snow, initial encounter; H91.90 Unspecified hearing loss, unspecified ear; K21.9 Gastro-esophageal reflux disease without esophagitis; E03.9 Hypothyroidism, unspecified; N40.0 Benign prostatic hyperplasia without lower urinary tract symptoms; Z85.46 Personal history of malignant neoplasm of prostate; I25.10 Atherosclerotic heart disease of native coronary artery without angina pectoris; Z87.891 Personal history of nicotine dependence; I10 Essential (primary) hypertension; F32.9 Major depressive disorder, single episode, unspecified; M16.11 Unilateral primary osteoarthritis, right hip
CPT/HCPCS: 36415; 36430; 71010; 71010-26; 72170; 72170-26; 73501-26-RT; 73501-RT; 73502-26-RT; 73502-RT; 80053; 81001; 84443; 85025; 86850; 86900; 86901; 93005; 94762; 96374; 96376; 97110-GP; 97116-GP; 97161-GP; 97165-GO; 97530-GP; 99284; 99285-25; A9270-GY; C1713; C1776; J0131; J0171; J0330; J0690; J0735; J1100; J1170; J1580; J1885; J2310; J2405; J2704; J2710; J2795; J3010; J7040; J7050; J7120; P9017

== ENCOUNTER 2020-12-09 08:38 | Day surgery (SDC) | payer MEDICARE, BC ==
[~2020-12-09 08:38] MED LIST: Midazolam 1 MG/ML 2 ML SDV ONE; Propofol 200 MG/20 ML SDV ONE; fentaNYL 100 MCG/2 ML SDV ONE
[2020-12-09] MEDS ORDERED: Sodium Chloride 0.9% 1,000 ML IV SCH (09:15)
[2020-12-09] MEDS ORDERED: ceFAZolin 2 GM in Premix Bag 1 BAG IV ONE (11:00)
[2020-12-09 12:08] VITALS: BP 107/66; PULSE 69
--- NOTE | 2020-12-10 08:28 | OR ---
DATE OF PROCEDURE: 12/09/2020 SURGEON: Moisés Sandoval MD PROCEDURE: Colonoscopy. FINDINGS: Normal colonoscopy. COMPLICATIONS: None. TOBACCO BALER: None. ANESTHESIA: MAC. PREOPERATIVE DIAGNOSIS: Screening colonoscopy. POSTOPERATIVE DIAGNOSIS: Screening colonoscopy. RISKS: Risks, benefits, alternatives, and limitations including but not limited to infection, bleeding, perforation, and false positives and false negatives were explained to the patient and he wished to proceed. PROCEDURE IN DETAIL: The patient was placed in left lateral decubitus position. Digital rectal exam was performed without abnormality. The scope was introduced and advanced atraumatically to the ileocecal valve. A photo was taken of this. Scope was brought back to the ascending, transverse, and descending colon and retroflexed. No evidence of old or new blood. No polyps. No masses. No abnormalities on retroflexion. Greater than 8 minutes was spent removing the scope. The prep was acceptable, approximately 90% of luminal surface could be seen. The patient tolerated the procedure well. Moisés Sandoval MD /[id number]
== END 2020-12-09 12:15 | disposition home or self-care (01) ==
LOC: JP.SDS 08:38
PROVIDERS: ATTEND Surgery
DX: K59.00 Constipation, unspecified (principal); I10 Essential (primary) hypertension; I25.10 Atherosclerotic heart disease of native coronary artery without angina pectoris; Z88.8 Allergy status to other drugs, medicaments and biological substances
CPT/HCPCS: 45378; J0690; J2704; J3010; J7030; J2250

== ENCOUNTER 2021-07-05 06:23 | Day surgery (SDC) | payer MEDICARE, BC ==
[2021-07-05] MEDS ORDERED: Propofol 200 MG/20 ML SDV ONE (07:15)
[2021-07-05] MEDS ORDERED: fentaNYL 100 MCG/2 ML SDV ONE (07:15)
[2021-07-05] MEDS ORDERED: Lactated Ringers 1,000 ML IV SCH (07:30)
[2021-07-05 08:19] VITALS: PULSE 63
[2021-07-05 08:31] VITALS: BP 123/58
== END 2021-07-05 08:30 | disposition home or self-care (01) ==
LOC: JP.SDS 06:23
PROVIDERS: ATTEND Internal Medicine
DX: K44.9 Diaphragmatic hernia without obstruction or gangrene (principal); I10 Essential (primary) hypertension; I25.10 Atherosclerotic heart disease of native coronary artery without angina pectoris; E78.5 Hyperlipidemia, unspecified; Z88.3 Allergy status to other anti-infective agents
CPT/HCPCS: 43235; J2704; J3010